=== PATIENT | female | born 1960 | race Caucasian/White ===

== ENCOUNTER → 2017-07-21 | Outpatient (CLI) | payer BC ==
--- NOTE | 2017-07-21 14:11 | XR ---
EXAMINATION TYPE: XR chest 2V DATE OF EXAM: 07/21/2017 COMPARISON: NONE HISTORY: Cough TECHNIQUE: Frontal and lateral views of the chest are obtained. FINDINGS: There is no focal air space opacity, pleural effusion, or pneumothorax seen. The cardiac silhouette size is within normal limits. The osseous structures are intact. IMPRESSION: No acute cardiopulmonary process.
== END | disposition home or self-care (01) ==
LOC: RADXRMAIN 10:17
PROVIDERS: ATTEND Family Medicine
DX: R05 Cough (principal)
CPT/HCPCS: 71020

== ENCOUNTER → 2017-09-13 | Outpatient (CLI) | payer BC ==
--- NOTE | 2017-09-15 06:52 | MM ---
Reason for exam: screening (asymptomatic). Last mammogram was performed 1 year and 6 months ago. History: Patient is postmenopausal and has history of other cancer at age 51. Physical Findings: A clinical breast exam by your physician is recommended on an annual basis and results should be correlated with mammographic findings. MG Screening Mammo w CAD Bilateral CC and MLO view(s) were taken. Prior study comparison: March 04, 2016, bilateral MG 3d screening mammo w/cad. December 19, 2014, bilateral MG screening mammo w CAD. October 11, 2013, bilateral digital screening mammo w/CAD. The breast tissue is heterogeneously dense. This may lower the sensitivity of mammography. No suspicious abnormality. No significant changes when compared with prior studies. ASSESSMENT: Negative, BI-RAD 1 RECOMMENDATION: Routine screening mammogram of both breasts in 1 year.
== END | disposition home or self-care (01) ==
LOC: RADMAMWWP 12:55
PROVIDERS: ATTEND Family Medicine
DX: Z12.31 Encounter for screening mammogram for malignant neoplasm of breast (principal)
CPT/HCPCS: 77067

== ENCOUNTER → 2018-12-07 | Outpatient (CLI) | payer BC ==
--- NOTE | 2018-12-08 11:26 | MM ---
Reason for exam: screening (asymptomatic). Last mammogram was performed 1 year and 3 months ago. History: Patient is postmenopausal and has history of other cancer at age 51. Physical Findings: A clinical breast exam by your physician is recommended on an annual basis and results should be correlated with mammographic findings. MG 3D Screening Mammo W/Cad Bilateral CC and MLO view(s) were taken. Prior study comparison: September 13, 2017, bilateral MG screening mammo w CAD. March 04, 2016, bilateral MG 3d screening mammo w/cad. There are scattered fibroglandular densities. No significant changes when compared with prior studies. ASSESSMENT: Benign, BI-RAD 2 RECOMMENDATION: Routine screening mammogram of both breasts in 1 year.
== END | disposition home or self-care (01) ==
LOC: RADMAMWWP 07:53
PROVIDERS: ATTEND Family Medicine
DX: Z12.31 Encounter for screening mammogram for malignant neoplasm of breast (principal)
CPT/HCPCS: 77063; 77067

== ENCOUNTER 2019-05-01 11:38 | Emergency (ER) | payer BC ==
[2019-05-01 11:45] VITALS: TEMP 97.9
[2019-05-01] MEDS ORDERED: SODIUM CHLORIDE 0.9% 500 ML 500 ML IV STA (12:32)
--- NOTE | 2019-05-01 12:40 | ED ---
General Adult HPI - General Chief complaint: Recheck/Abnormal Lab/Rx Stated complaint: elevated BP Time Seen by Provider: 05/01/19 12:00 Source: patient, RN notes reviewed Mode of arrival: ambulatory Limitations: no limitations - History of Present Illness Initial comments: 58-year-old female without any significant past medical history presents to the emergency department for multiple complaints. Patient states she initially presented for hypertension. States she checked her blood pressure at home and it was 147/98. Patient states that this is high for her. Patient also states that yesterday she started to have some chest pressure that lasted throughout the night but improved this morning. States she has some shortness of breath as well that was worse last night. Patient admits she recently drove home from [place] 2 days ago. Patient also complaining that while she was in [place] she had a biopsy of a mole on her left forearm and that she believes it is infected. States it is red around the area. Denies fever or chills.Patient has no other complaints at this time including shortness of breath, chest pain, abdominal pain, nausea or vomiting, headache, or visual changes. - Related Data Home Medications Medication Instructions Recorded Confirmed Lansoprazole [Prevacid] 30 mg PO DAILY 12/25/14 12/26/14 Previous Rx's Medication Instructions Recorded Cephalexin [Keflex] 500 mg PO Q6HR 10 Days #40 cap 05/01/19 Allergies Allergy/AdvReac Type Severity Reaction Status Date / Time codeine Allergy Unknown Verified 05/01/19 11:45 lactose Allergy Unknown Verified 05/01/19 11:45 levofloxacin [From Levaquin] Allergy Unknown Verified 05/01/19 11:45 sulfamethoxazole Allergy Rash/Hives Verified 05/01/19 11:45 [From Bactrim] trimethoprim [From Bactrim] Allergy Rash/Hives Verified 05/01/19 11:45 Review of Systems ROS Statement: Those systems with pertinent positive or pertinent negative responses have been documented in the HPI. ROS Other: All systems not noted in ROS Statement are negative. Past Medical History Past Medical History: Hypertension History of Any Multi-Drug Resistant Organisms: None Reported Past Surgical History: Hysterectomy Past Psychological History: No Psychological Hx Reported Smoking Status: Never smoker Past Alcohol Use History: None Reported Past Drug Use History: None Reported General Exam Limitations: no limitations General appearance: alert, in no apparent distress Head exam: Present: atraumatic, normocephalic, normal inspection Eye exam: Present: normal appearance, PERRL, EOMI. Absent: scleral icterus, conjunctival injection, periorbital swelling ENT exam: Present: normal exam, mucous membranes moist Neck exam: Present: normal inspection, full ROM. Absent: tenderness, meningismus, lymphadenopathy Respiratory exam: Present: normal lung sounds bilaterally. Absent: respiratory distress, wheezes, rales, rhonchi, stridor Cardiovascular Exam: Present: regular rate, normal rhythm, normal heart sounds. Absent: systolic murmur, diastolic murmur, rubs, gallop, clicks Neurological exam: Present: alert Psychiatric exam: Present: normal affect, normal mood Course Vital Signs 05/01/19 05/01/19 05/01/19 11:42 12:23 12:30 Temperature 97.9 F Pulse Rate 77 66 65 Respiratory 18 21 18 Rate Blood Pressure 134/85 122/75 O2 Sat by Pulse 98 96 Oximetry 05/01/19 05/01/19 05/01/19 12:40 13:04 13:10 Temperature Pulse Rate 62 87 60 Respiratory 16 18 16 Rate Blood Pressure 124/87 129/82 126/82 O2 Sat by Pulse 96 99 97 Oximetry 05/01/19 05/01/19 13:40 14:12 Temperature Pulse Rate 63 70 Respiratory 16 18 Rate Blood Pressure 126/92 115/81 O2 Sat by Pulse 97 98 Oximetry - Reevaluation(s) Reevaluation #1: 05/01/19 12:40 Blood pressure was repeated on my initial evaluation and was 124/74. EKG Findings - EKG Comments: EKG Findings:: Normal sinus rhythm, ventricular rate 74, Pr int 168, QTC 404 Medical Decision Making - Medical Decision Making 50-year-old female presents to the emergency department for multiple complaints. Patient states she is here because her blood pressure was high and was 148/98 at home. Patient also admits to chest pressure and some mild shortness of breath. Did travel from [place] yesterday. Vitals are stable. Exam is unrem arkable. EKG does not show any evidence of ST elevation or depression. CBC and CMP are unremarkable. Troponin is negative. D-dimer is negative. Patient states pressure in her chest has resolved as well as the shortness of breath. Recommended admission for further workup by cardiology however patient prefers to go home. She does agree to follow up outpatient. at bedside agrees with this as well. Patient also has some mild starting erythema around a biopsy site on the left forearm. Possible early developing cellulitis. Will be treated with Keflex and she will follow up with primary care to further monitor this as well. - Lab Data Result diagrams: 05/01/19 12:16 05/01/19 12:16 Lab Results 05/01/19 05/01/19 05/01/19 Range/Units 12:16 12:16 12:16 WBC 6.7 (3.8-10.6) k/uL RBC 4.57 (3.80-5.40) m/uL Hgb 14.6 (11.4-16.0) gm/dL Hct 42.7 (34.0-46.0) % MCV 93.4 (80.0-100.0) fL MCH 31.9 (25.0-35.0) pg MCHC 34.2 (31.0-37.0) g/dL RDW 14.7 (11.5-15.5) % Plt Count 262 (150-450) k/uL Neutrophils % 66 % Lymphocytes % 26 % Monocytes % 4 % Eosinophils % 2 % Basophils % 1 % Neutrophils # 4.4 (1.3-7.7) k/uL Lymphocytes # 1.8 (1.0-4.8) k/uL Monocytes # 0.3 (0-1.0) k/uL Eosinophils # 0.2 (0-0.7) k/uL Basophils # 0.1 (0-0.2) k/uL PT 10.0 (9.0-12.0) sec INR 0.9 (<1.2) APTT 23.3 (22.0-30.0) sec D-Dimer 0.33 (<0.60) mg/L FEU Sodium 140 (137-145) mmol/L Potassium 4.5 (3.5-5.1) mmol/L Chloride 107 (98-107) mmol/L Carbon Dioxide 24 (22-30) mmol/L Anion Gap 9 mmol/L BUN 14 (7-17) mg/dL Creatinine 0.65 (0.52-1.04) mg/dL Est GFR (CKD-EPI)AfAm >90 (>60 ml/min/1.73 sqM) Est GFR (CKD-EPI)NonAf >90 (>60 ml/min/1.73 sqM) Glucose 94 (74-99) mg/dL Calcium 9.5 (8.4-10.2) mg/dL Magnesium 2.1 (1.6-2.3) mg/dL Total Bilirubin 0.4 (0.2-1.3) mg/dL AST 24 (14-36) U/L ALT 23 (9-52) U/L Alkaline Phosphatase 67 (38-126) U/L Troponin I (0.000-0.034) ng/mL NT-Pro-B Natriuret Pep pg/mL Total Protein 6.9 (6.3-8.2) g/dL Albumin 4.3 (3.5-5.0) g/dL 05/01/19 05/01/19 Range/Units 12:16 12:16 WBC (3.8-10.6) k/uL RBC (3.80-5.40) m/uL Hgb (11.4-16.0) gm/dL Hct (34.0-46.0) % MCV (80.0-100.0) fL MCH (25.0-35.0) pg MCHC (31.0-37.0) g/dL RDW (11.5-15.5) % Plt Count (150-450) k/uL Neutrophils % % Lymphocytes % % Monocytes % % Eosinophils % % Basophils % % Neutrophils # (1.3-7.7) k/uL Lymphocytes # (1.0-4.8) k/uL Monocytes # (0-1.0) k/uL Eosinophils # (0-0.7) k/uL Basophils # (0-0.2) k/uL PT (9.0-12.0) sec INR (<1.2) APTT (22.0-30.0) sec D-Dimer (<0.60) mg/L FEU Sodium (137-145) mmol/L Potassium (3.5-5.1) mmol/L Chloride (98-107) mmol/L Carbon Dioxide (22-30) mmol/L Anion Gap mmol/L BUN (7-17) mg/dL Creatinine (0.52-1.04) mg/dL Est GFR (CKD-EPI)AfAm (>60 ml/min/1.73 sqM) Est GFR (CKD-EPI)NonAf (>60 ml/min/1.73 sqM) Glucose (74-99) mg/dL Calcium (8.4-10.2) mg/dL Magnesium (1.6-2.3) mg/dL Total Bilirubin (0.2-1.3) mg/dL AST (14-36) U/L ALT (9-52) U/L Alkaline Phosphatase (38-126) U/L Troponin I <0.012 (0.000-0.034) ng/mL NT-Pro-B Natriuret Pep 98 pg/mL Total Protein (6.3-8.2) g/dL Albumin (3.5-5.0) g/dL Disposition Clinical Impression: History of chest pain Disposition: HOME SELF-CARE Condition: Good Instructions (If sedation given, give patient instructions): Chest Pain (ED) Additional Instructions: Please follow up with primary care in 1-2 days. Take antibiotic as directed, this was sent to [facility] on . Return to the emergency department if you have any worsening symptoms. Prescriptions: Cephalexin [Keflex] 500 mg PO Q6HR 10 Days #40 cap Is patient prescribed a controlled substance at d/c from ED?: No Referrals: Mike Ramirez MD [Primary Care Provider] - 1-2 days Time of Disposition: 14:28
[2019-05-01 12:55] LABS: ALT 23 U/L (9-52); AST 24 U/L (14-36); African American GFR (CKD) >90 (>60 ml/min/1.73 sqM); Albumin 4.3 g/dL (3.5-5.0); Alkaline Phosphatase 67 U/L (38-126); Anion Gap 9 mmol/L; Blood Urea Nitrogen 14 mg/dL (7-17); Calcium 9.5 mg/dL (8.4-10.2); Carbon Dioxide 24 mmol/L (22-30); Chloride 107 mmol/L (98-107); Glucose 94 mg/dL (74-99); Magnesium 2.1 mg/dL (1.6-2.3); Potassium 4.5 mmol/L (3.5-5.1); Sodium 140 mmol/L (137-145); Total Bilirubin 0.4 mg/dL (0.2-1.3); Total Protein 6.9 g/dL (6.3-8.2)
[2019-05-01 12:58] LABS: Basophils # (A) 0.1 k/uL (0-0.2); Basophils % (A) 1 %; Eosinophils # (A) 0.2 k/uL (0-0.7); Eosinophils % (A) 2 %; HCT 42.7 % (34.0-46.0); HGB 14.6 gm/dL (11.4-16.0); Lymphocytes # (A) 1.8 k/uL (1.0-4.8); Lymphocytes % (A) 26 %; MCH 31.9 pg (25.0-35.0); MCHC 34.2 g/dL (31.0-37.0); MCV 93.4 fL (80.0-100.0); Mean Platelet Volume 7.1; Monocytes # (A) 0.3 k/uL (0-1.0); Monocytes % (A) 4 %; Neutrophils # (A) 4.4 k/uL (1.3-7.7); Neutrophils % (A) 66 %; Platelet Count 262 k/uL (150-450); RBC 4.57 m/uL (3.80-5.40); RDW 14.7 % (11.5-15.5); WBC 6.7 k/uL (3.8-10.6)
[2019-05-01 12:59] LABS: D-Dimer 0.33 mg/L FEU (<0.60); INR 0.9 (<1.2); Partial Thromboplastin Time 23.3 sec (22.0-30.0)
--- NOTE | 2019-05-01 13:10 | XR ---
EXAMINATION TYPE: XR chest 2V DATE OF EXAM: 05/01/2019 COMPARISON: NONE HISTORY: Hypertension and headache TECHNIQUE: Frontal and lateral views of the chest are obtained. FINDINGS: There is no focal air space opacity, pleural effusion, or pneumothorax seen. The cardiac silhouette size is within normal limits. The osseous structures are intact. Minimal degenerative ch anges of the spine. IMPRESSION: No acute cardiopulmonary process.
[2019-05-01 14:13] VITALS: BP 115/81; PULSE 70; RESP 18
== END 2019-05-01 14:43 | disposition home or self-care (01) ==
LOC: EC 11:38
DX: R07.89 Other chest pain (principal); L53.9 Erythematous condition, unspecified; I10 Essential (primary) hypertension; Z79.899 Other long term (current) drug therapy; Z88.5 Allergy status to narcotic agent; Z91.011 Allergy to milk products; Z88.1 Allergy status to other antibiotic agents; Z88.2 Allergy status to sulfonamides
CPT/HCPCS: 36415; 71046; 80053; 83735; 83880; 84484; 85025; 85379; 85610; 85730; 93005; 96360; 99284

== ENCOUNTER → 2019-06-21 | Outpatient (CLI) | payer BC ==
--- NOTE | 2019-06-21 11:39 | P.STRESS ---
- Stress Test Note Stress Test Results/Findings: Exam Performed: NM stress cardiolite complete Exam Date: 06/21/19 Reason for Exam: Chest Pain Height: 5 ft 5 in Weight: 64.41 kg Protocol: Kwadwo Stage: 4 Duration of Exercise: 10:00 Resting Heart Rate: 65 Resting Blood Pressure: 123/75 Maximum Achieved Heart Rate: 146 Maximum Achieved Blood Pressure: 159/79 85% PMHR: 138 100% PMHR: 162 METS: 11.3 Technologist Comment: Stress Test Results/Findings: This is a 58-year-old female with history of hypertension and COPD being evaluated for symptoms of chest pain and shortness of breath and palpitations. Stress data: Baseline EKG showed sinus rhythm with normal NV interval, QRS duration. Blood pressure at rest is 123/75 with pulse rate of 65. Patient walked on the Kwadwo protocol for 10 minutes achieving a maximum rate of 146 with a blood pressure 159/79. EKGs taken during and after x-ray did not reveal any significant changes from the baseline. Patient did not experience any chest pain. Final impression: #1. Negative stress test #2. Patient did not express any chest pain #3. No arrhythmias are detected #4. Report on the nuclear images to be given by the radiologist
--- NOTE | 2019-06-21 14:24 | NM ---
EXAMINATION TYPE: NM stress cardiolite complete DATE OF EXAM: 06/21/2019 COMPARISON: NONE HISTORY: Chest pain TECHNIQUE: After the intravenous administration of 9.91 mCi Tc 99m Sestamibi - Rest images obtained 45 minutes post injection. The patient exercised using a SHELLY protocol and 1 minute prior to peak exercise was injected with 25.4 mCi Tc 99m Sestamibi - Stress images obtained 20 minutes post injecti on. FINDINGS: Targeted heart rate was achieved during performance of the study. Review of stress and rest SPECT gustavo ges demonstrates no distinct perfusion abnormality. Gated analysis shows normal wall motion with an estimated left ventricular ejection fraction of 26 %. IMPRESSION: No scintigraphic evidence for reversible ischemia. Correlate with echocardiographic study for elevate d ejection fraction.
--- NOTE | 2019-06-23 12:01 | EST ---
- Stress Test Note Stress Test Results/Findings: Exam Performed: NM stress cardiolite complete Exam Date: 06/21/19 Reason for Exam: Chest Pain Height: 5 ft 5 in Weight: 64.41 kg Protocol: Kwadwo Stage: 4 Duration of Exercise: 10:00 Resting Heart Rate: 65 Resting Blood Pressure: 123/75 Maximum Achieved Heart Rate: 146 Maximum Achieved Blood Pressure: 159/79 85% PMHR: 138 100% PMHR: 162 METS: 11.3 Technologist Comment: Stress Test Results/Findings: This is a 58-year-old female with history of hypertension and COPD being evaluated for symptoms of chest pain and shortness of breath and palpitations. Stress data: Baseline EKG showed sinus rhythm with normal CT interval, QRS duration. Blood pressure at rest is 123/75 with pulse rate of 65. Patient walked on the Kwadwo protocol for 10 minutes achieving a maximum rate of 146 with a blood pressure 159/79. EKGs taken during and after x-ray did not reveal any significant changes from the baseline. Patient did not experience any chest pain. Final impression: #1. Negative stress test #2. Patient did not express any chest pain #3. No arrhythmias are detected #4. Report on the nuclear images to be given by the radiologist DOMONIQUE
== END | disposition home or self-care (01) ==
LOC: RADNMMAIN 07:46
PROVIDERS: ATTEND Family Medicine
DX: R07.9 Chest pain, unspecified (principal)
CPT/HCPCS: 93017; 78452; A9500

== ENCOUNTER → 2019-07-03 | Outpatient (CLI) | payer BC ==
[2019-07-03 18:18] LABS: Chol/HDL Ratio 3.61; LDL Cholesterol,Calculated 136.8 mg/dL (0.0-131.0); VLDL Calculation 17.2 mg/dL (5.00-40.00)
== END | disposition home or self-care (01) ==
LOC: LABWHC1 10:32
PROVIDERS: ATTEND Internal Medicine Clinical Cardiac Electrophysiology
DX: I10 Essential (primary) hypertension (principal); E78.5 Hyperlipidemia, unspecified
CPT/HCPCS: 36415; 80061

== ENCOUNTER → 2020-04-08 | Outpatient (CLI) | payer BC ==
--- NOTE | 2020-04-09 08:32 | MM ---
Reason for exam: screening (asymptomatic). Last mammogram was performed 1 year and 4 months ago. History: Patient is postmenopausal and has history of other cancer at age 51. Took hormonal contraceptives for 3 months. Physical Findings: A clinical breast exam by your physician is recommended on an annual basis and results should be correlated with mammographic findings. MG 3D Screening Mammo W/Cad Bilateral CC and MLO view(s) were taken. Prior study comparison: December 07, 2018, bilateral MG 3d screening mammo w/cad. September 13, 2017, bilateral MG screening mammo w CAD. There are scattered fibroglandular densities. Benign appearing bilateral calcifications. There is chronic nodularity in the right breast, stable. ASSESSMENT: Benign, BI-RAD 2 RECOMMENDATION: Routine screening mammogram of both breasts in 1 year.
== END | disposition home or self-care (01) ==
LOC: RADMAMWWP 12:49
PROVIDERS: ATTEND Family Medicine
DX: Z12.31 Encounter for screening mammogram for malignant neoplasm of breast (principal)
CPT/HCPCS: 77063; 77067

== ENCOUNTER 2020-06-14 16:32 | Observation (INO) | payer BC ==
[2020-06-14] MEDS ORDERED: ASPIRIN 81 MG PO STA (16:43)
[2020-06-14 17:31] LABS: Basophils % (A) 0 %; Eosinophils # (A) 0.2 k/uL (0-0.7); Eosinophils % (A) 2 %; HCT 43.4 % (34.0-46.0); HGB 14.3 gm/dL (11.4-16.0); Lymphocytes # (A) 2.1 k/uL (1.0-4.8); Lymphocytes % (A) 22 %; MCH 32.4 pg (25.0-35.0); MCHC 32.9 g/dL (31.0-37.0); MCV 98.6 fL (80.0-100.0); Mean Platelet Volume 6.8; Monocytes # (A) 0.4 k/uL (0-1.0); Monocytes % (A) 4 %; Neutrophils # (A) 6.9 k/uL (1.3-7.7); Neutrophils % (A) 71 %; Platelet Count 312 k/uL (150-450); RDW 12.5 % (11.5-15.5); WBC 9.7 k/uL (3.8-10.6)
[2020-06-14 17:36] LABS: INR 0.9 (<1.2); Partial Thromboplastin Time 22.7 sec (22.0-30.0); Prothrombin Time 9.6 sec (9.0-12.0)
--- NOTE | 2020-06-14 17:36 | XR ---
EXAMINATION TYPE: XR chest 2V DATE OF EXAM: 06/14/2020 COMPARISON: May 01, 2019 HISTORY: Chest pain TECHNIQUE: FINDINGS: Heart and mediastinum are normal. Lungs are clear of infiltrate. There is no heart failure. There are no hilar masses. Bony thorax is intact. IMPRESSION: No active cardiopulmonary disease. Normal heart. No change.
[2020-06-14 18:01] LABS: ALT 21 U/L (4-34); AST 26 U/L (14-36); African American GFR (CKD) >90 (>60 ml/min/1.73 sqM); Alkaline Phosphatase 84 U/L (38-126); Anion Gap 10 mmol/L; Blood Urea Nitrogen 18 mg/dL (7-17); Calcium 10.2 mg/dL (8.4-10.2); Carbon Dioxide 23 mmol/L (22-30); Chloride 103 mmol/L (98-107); Glucose 100 mg/dL (74-99); Non-African American GFR(CKD) 90 (>60 ml/min/1.73 sqM); Potassium 4.5 mmol/L (3.5-5.1); Sodium 136 mmol/L (137-145); Total Bilirubin 0.6 mg/dL (0.2-1.3); Total Protein 7.9 g/dL (6.3-8.2)
--- NOTE | 2020-06-14 18:20 | ED ---
General Adult HPI - General Source: patient Mode of arrival: ambulatory Limitations: no limitations <Jordan Vaughan - Last Filed: 06/14/20 18:56> <Erma Wharton - Last Filed: 06/16/20 15:37> - General Chief complaint: Recheck/Abnormal Lab/Rx Stated complaint: HIGH BP Time Seen by Provider: 06/14/20 16:43 - History of Present Illness Initial comments: Patient is a 59-year-old male presenting to the emergency department with chief complaint of high blood pressure. Patient states she has been feeling "queasy" for the past week with high and low blood pressures. Patient reports today her blood pressure was 169/111 so she took an additional dose of lisinopril. Patient reports she developed some pain along both sides of her neck and the left arm. Denies any chest pain or shortness of breath. She reports feeling lightheaded like she is about to pass out with intermittent dizziness where the room is spinning around her. She denies any diaphoretic episodes nausea vomiting or diarrhea. Denies any headaches, visual changes one-sided weakness paresthesias at this time. States that she was diagnosed with hypertension last year and has been on lisinopril since. Does report hypocholesteremia but is not currently treated for it. She's not a smoker. No history of diabetes. Denies early cardiac related in the family. (Jordan Vaughan) - Related Data Home Medications Medication Instructions Recorded Confirmed Cholecalciferol [Vitamin D3 (25 5,000 unit PO DAILY 06/14/20 06/14/20 Mcg = 1000 Iu)] Cyanocobalamin (Vitamin B-12) 5,000 mcg SL DAILY 06/14/20 06/14/20 [Vitamin B-12] Previous Rx's Medication Instructions Recorded Lisinopril [Prinivil] 5 mg PO BID #0 06/15/20 Allergies Allergy/AdvReac Type Severity Reaction Status Date / Time codeine Allergy Rash/Hives Verified 06/14/20 18:54 lactose Allergy Unknown Verified 06/14/20 18:54 levofloxacin [From Levaquin] Allergy anxiety Verified 06/14/20 18:54 sulfamethoxazole Allergy Rash/Hives Verified 06/14/20 18:54 [From Bactrim] trimethoprim [From Bactrim] Allergy Rash/Hives Verified 06/14/20 18:54 Review of Systems ROS Other: All systems not noted in ROS Statement are negative. <Jordan Vaughan - Last Filed: 06/14/20 18:56> ROS Other: All systems not noted in ROS Statement are negative. <Erma Wharton - Last Filed: 06/16/20 15:37> ROS Statement: Those systems with pertinent positive or pertinent negative responses have been documented in the HPI. Past Medical History Past Medical History: Hypertension History of Any Multi-Drug Resistant Organisms: None Reported Past Surgical History: Hysterectomy Past Psychological History: No Psychological Hx Reported Smoking Status: Never smoker Past Alcohol Use History: None Reported Past Drug Use History: None Reported <Jordan Vaughan - Last Filed: 06/14/20 18:56> General Exam Limitations: no limitations General appearance: alert, in no apparent distress Head exam: Present: atraumatic, normocephalic, normal inspection Eye exam: Present: normal appearance, PERRL, EOMI Pupils: Present: normal accommodation ENT exam: Present: normal exam, normal oropharynx, mucous membranes moist Neck exam: Present: normal inspection, full ROM. Absent: tenderness Respiratory exam: Present: normal lung sounds bilaterally. Absent: respiratory distress, wheezes, rales Cardiovascular Exam: Present: regular rate, normal rhythm, normal heart sounds GI/Abdominal exam: Present: soft. Absent: distended, tenderness, guarding, rebo und Extremities exam: Present: normal inspection, full ROM, normal capillary refill, other (+2 ulnar and radial pulses bilateral.). Absent: tenderness, pedal edema, joint swelling, calf tenderness Back exam: Present: normal inspection, full ROM. Absent: tenderness, CVA tenderness (R), CVA tenderness (L) Neurological exam: Present: alert, oriented X3 Psychiatric exam: Present: normal affect, normal mood Skin exam: Present: warm, dry, intact, normal color <Jordan Vaughan - Last Filed: 06/14/20 18:56> Course Vital Signs 06/14/20 06/14/20 06/14/20 16:36 17:34 18:00 Temperature 98.9 F Pulse Rate 77 76 76 Pulse Rate [ Pulse Oximetery ] Respiratory 18 18 Rate Blood Pressure 131/90 146/93 Blood Pressure [Right Arm] O2 Sat by Pulse 100 98 Oximetry 10/16/20 10/16/20 10/16/20 18:30 19:56 20:19 Temperature 97.7 F 97.3 F L Pulse Rate 71 76 Pulse Rate [ 71 Pulse Oximetery ] Respiratory 16 18 18 Rate Blood Pressure 125/83 136/78 Blood Pressure 148/92 [Right Arm] O2 Sat by Pulse 98 99 98 Oximetry EKG Findings - EKG Comments: EKG Findings:: Sinus rhythm with PAC. Ventricular rate 73, HI 154, QRS 78, QTC 416. <Jordan Vaughan - Last Filed: 06/14/20 18:56> Medical Decision Making - Lab Data Result diagrams: 06/14/20 17:03 06/14/20 17:03 <Jordan Vaughan - Last Filed: 06/14/20 18:56> - Lab Data Result diagrams: 06/14/20 17:03 06/14/20 17:03 <Erma Wharton - Last Filed: 06/16/20 15:37> - Medical Decision Making Patient is 59-year-old female presenting to the emergency department with a chief complaint of high blood pressure. On initial evaluation, patient has acceptable blood pressure. She is complaining of bilateral neck pressure as well as heaviness in the left arm. No significant dyspnea or chest pain at this time. She is feeling lightheaded. Patient was given aspirin. EKG revealed sinus rhythm with sinus arrhythmia. Most recent stress test from 2019 was within normal limits. Initial troponins were negative. CBC and CMP are unremarkable. Chest x-ray is negative for any acute processes. Patient will be admitted for cardiac observation and serial troponins. Patient has a heart score 4. Case discussed with Admitting physician is Cardiology consulted (Jordan Vaughan) I was available for consultation in the emergency department. The history and physical exam were done by the midlevel provider. [facility] I reviewed the case with the midlevel provider and based on their presentation of the patient, I agree with the assessment, medical decision making and plan of care as documented. Chart was dictated using [employer] dictation software. Attempts were made to correct any dictation errors however some typographical errors may persist. (Erma Wharton) - Lab Data Lab Results 06/14/20 06/14/20 06/14/20 Range/Units 17:03 17:03 17:03 WBC 9.7 (3.8-10.6) k/uL RBC 4.40 (3.80-5.40) m/uL Hgb 14.3 (11.4-16.0) gm/dL Hct 43.4 (34.0-46.0) % MCV 98.6 (80.0-100.0) fL MCH 32.4 (25.0-35.0) pg MCHC 32.9 (31.0-37.0) g/dL RDW 12.5 (11.5-15.5) % Plt Count 312 (150-450) k/uL Neutrophils % 71 % Lymphocytes % 22 % Monocytes % 4 % Eosinophils % 2 % Basophils % 0 % Neutrophils # 6.9 (1.3-7.7) k/uL Lymphocytes # 2.1 (1.0-4.8) k/uL Monocytes # 0.4 (0-1.0) k/uL Eosinophils # 0.2 (0-0.7) k/uL Basophils # 0.0 (0-0.2) k/uL PT 9.6 (9.0-12.0) sec INR 0.9 (<1.2) APTT 22.7 (22.0-30.0) sec Sodium 136 L (137-145) mmol/L Potassium 4.5 (3.5-5.1) mmol/L Chloride 103 (98-107) mmol/L Carbon Dioxide 23 (22-30) mmol/L Anion Gap 10 mmol/L BUN 18 H (7-17) mg/dL Creatinine 0.74 (0.52-1.04) mg/dL Est GFR (CKD-EPI)AfAm >90 (>60 ml/min/1.73 sqM) Est GFR (CKD-EPI)NonAf 90 (>60 ml/min/1.73 sqM) Glucose 100 H (74-99) mg/dL Calcium 10.2 (8.4-10.2) mg/dL Magnesium 2.0 (1.6-2.3) mg/dL Total Bilirubin 0.6 (0.2-1.3) mg/dL AST 26 (14-36) U/L ALT 21 (4-34) U/L Alkaline Phosphatase 84 (38-126) U/L Troponin I (0.000-0.034) ng/mL Total Protein 7.9 (6.3-8.2) g/dL Albumin 5.0 (3.5-5.0) g/dL 06/14/20 Range/Units 17:03 WBC (3.8-10.6) k/uL RBC (3.80-5.40) m/uL Hgb (11.4-16.0) gm/dL Hct (34.0-46.0) % MCV (80.0-100.0) fL MCH (25.0-35.0) pg MCHC (31.0-37.0) g/dL RDW (11.5-15.5) % Plt Count (150-450) k/uL Neutrophils % % Lymphocytes % % Monocytes % % Eosinophils % % Basophils % % Neutrophils # (1.3-7.7) k/uL Lymphocytes # (1.0-4.8) k/uL Monocytes # (0-1.0) k/uL Eosinophils # (0-0.7) k/uL Basophils # (0-0.2) k/uL PT (9.0-12.0) sec INR (<1.2) APTT (22.0-30.0) sec Sodium (137-145) mmol/L Potassium (3.5-5.1) mmol/L Chloride (98-107) mmol/L Carbon Dioxide (22-30) mmol/L Anion Gap mmol/L BUN (7-17) mg/dL Creatinine (0.52-1.04) mg/dL Est GFR (CKD-EPI)AfAm (>60 ml/min/1.73 sqM) Est GFR (CKD-EPI)NonAf (>60 ml/min/1.73 sqM) Glucose (74-99) mg/dL Calcium (8.4-10.2) mg/dL Magnesium (1.6-2.3) mg/dL Total Bilirubin (0.2-1.3) mg/dL AST (14-36) U/L ALT (4-34) U/L Alkaline Phosphatase (38-126) U/L Troponin I <0.012 (0.000-0.034) ng/mL Total Protein (6.3-8.2) g/dL Albumin (3.5-5.0) g/dL Disposition Is patient prescribed a controlled substance at d/c from ED?: No Time of Disposition: 18:59 <Jordan Vaughan - Last Filed: 06/14/20 18:56> <Erma Wharton - Last Filed: 06/16/20 15:37> Clinical Impression: Lightheadedness, Dizziness, Atypical chest pain Disposition: ADMITTED IP TO THIS HOSP Condition: Stable
[2020-06-14] MEDS ORDERED: HYDROmorphone 0.5 MG/0.5 ML SYRINGE IVP PRN (18:45)
[2020-06-14] MEDS ORDERED: LORazepam 2 MG/ML INJ IV PRN (18:45)
[2020-06-14] MEDS ORDERED: ONDANSETRON 4 MG/2 ML VIAL IVP PRN (18:45)
[2020-06-14] MEDS ORDERED: NALOXONE 0.4 MG/ML 1 ML VIAL IV PRN (18:45)
[2020-06-14] MEDS ORDERED: IBUPROFEN 400 MG TAB PO PRN (18:45)
[2020-06-14] MEDS ORDERED: ACETAMINOPHEN TAB 325 MG TAB PO PRN (18:45)
[2020-06-14] MEDS: SODIUM CHLORIDE 0.9% 1,000 ML IV SCH (19:49)
[2020-06-15] MEDS ORDERED: CHOLECALCIFEROL 1,000 UNIT TAB PO SCH (09:00)
[2020-06-15] MEDS ORDERED: lisinopriL 10 MG TAB PO SCH (09:00)
[2020-06-15] MEDS ORDERED: CYANOCOBALAMIN 500 MCG TAB PO SCH (09:00)
[2020-06-15] MEDS: SODIUM CHLORIDE 0.9% 1,000 ML IV SCH (11:18)
--- NOTE | 2020-06-15 12:19 | P.CRDCN ---
History of Present Illness History of present illness: came in for htn and left shoulder/jaw tightness at home. pressure in the head. also discomfort in the upper abdomen. has been having jaw pain off and on for 1 week. HISTORY OF PRESENTING ILLNESS This is a pleasant 59-year-old female past medical history significant for hypertension and lactose intolerance causing significant abdominal symptoms. She follows in the office with Dr. Whipple. We have been asked to see in consultation for dizziness. The patient states she's been checking her blood pressure frequently and it seems to be elevated. It's been causing her symptoms of headache and feeling lightheaded. She also describes having intermittent episodes of jaw discomfort off-and-on for the previous one week. This is not related to exertion or activity. She denies any precordial chest pain, shortness of breath or palpitations. She states her blood pressure at home has been 130/100 and she's been taking more for lisinopril at home. On arrival to the emergency department blood pressure was 130/90. This morning is 102/65. DIAGNOSTICS EKG reveals sinus mechanism with a single PAC. Chest xray negative for an acute cardiopulmonary process. Laboratory reviewed, CBC unremarkable, sodium 136, potassium 4.5, creatinine 0.74, cardiac enzymes negative 3. Current cardiac medications include Cipro 10 mg daily. Most recent echocardiogram obtained in the office June 2019 reveals preserved LV systolic function with ejection fraction 60%, normal diastolic function and no valvular abnormalities noted. REVIEW OF SYSTEMS At the time of my exam: CONSTITUTIONAL: Denies fever or chills. CARDIOVASCULAR: Denies chest pain, shortness of breath, orthopnea, PND or palpitations. RESPIRATORY: Denies cough. GASTROINTESTINAL: Denies abdominal pain, diarrhea, constipation, nausea or vomiting. MUSCULOSKELETAL: Denies myalgias. NEUROLOGIC: Denies numbness, tingling or weakness. ENDOCRINE: Denies fatigue, weight change, polydipsia or polyurina. GENITOURINARY: Denies burning, hematuria or urgency with micturation. HEMATOLOGIC: Denies history of anemia or bleeding. PHYSICAL EXAMINATION CONSTITUTIONAL: No apparent distress. HEENT: Head is normocephalic. Pupils are equal, round. Sclerae anicteric. Mucous membranes of the mouth are moist. No JVD. No carotid bruit. CHEST EXAMINATION: Lungs are clear to auscultation. No chest wall tenderness is noted on palpation or with deep breathing. HEART EXAMINATION: Regular rate and rhythm. S1, S2 heard. No murmurs, gallops or rub. ABDOMEN: Soft, nontender. Positive bowel sounds. EXTREMITIES: 2+ peripheral pulses, no lower extremity edema and no calf tenderness. NEUROLOGIC EXAMINATION: Patient is awake, alert and oriented x3. ASSESSMENT Chest pain, atypical Hypertension PLAN Acute coronary event has been ruled out. Telemetry tracings have been unremarkable. Blood pressures have been controlled on current regimen. Repeat 2-D echocardiogram and Doppler study to assess cardiac structure and function. Advised the patient to increase activity and ambulate. Assess for exertional symptoms of chest discomfort. We recommend stress testing this can be obtained by staying in the hospital and having it done on Wednesday or being discharged to see Dr. Whipple in the office next week. The patient states she would much rather do this as an outpatient. If she is free of exertional pain this is a reasonable recommendation. Thank you chronic for this consultation. Nurse Practitioner note has been reviewed, I agree with a documented findings and plan of care. Patient was seen and examined. 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 Past Drug Use History: None Reported Medications and Allergies Home Medications Medication Instructions Recorded Confirmed Type Cholecalciferol [Vitamin D3 (25 5,000 unit PO DAILY 06/14/20 06/14/20 History Mcg = 1000 Iu)] Cyanocobalamin (Vitamin B-12) 5,000 mcg SL DAILY 06/14/20 06/14/20 History [Vitamin B-12] Lisinopril [Prinivil] 10 mg PO DAILY 06/14/20 06/14/20 History Allergies Allergy/AdvReac Type Severity Reaction Status Date / Time codeine Allergy Rash/Hives Verified 06/14/20 18:54 lactose Allergy Unknown Verified 06/14/20 18:54 levofloxacin [From Levaquin] Allergy anxiety Verified 06/14/20 18:54 sulfamethoxazole Allergy Rash/Hives Verified 06/14/20 18:54 [From Bactrim] trimethoprim [From Bactrim] Allergy Rash/Hives Verified 06/14/20 18:54 Physical Exam Vitals: Vital Signs Temp Pulse Pulse Resp BP BP Pulse Ox 06/15/20 09:00 72 16 06/15/20 08:10 98.1 F 72 16 118/78 97 06/15/20 03:50 97.8 F 69 18 102/65 96 06/15/20 03:00 69 18 06/14/20 21:00 97.7 F 71 18 148/92 99 06/14/20 20:19 97.3 F L 76 18 136/78 98 06/14/20 19:56 97.7 F 71 18 148/92 99 06/14/20 18:30 71 16 125/83 98 06/14/20 18:00 76 18 146/93 98 06/14/20 17:34 76 06/14/20 16:36 98.9 F 77 18 131/90 100 Intake and Output 06/14/20 06/15/20 06/15/20 22:59 06:59 14:59 Other: Voiding Method Toilet Toilet Toilet # Voids 1 2 2 Weight 68.039 kg Results 06/14/20 17:03 06/14/20 17:03 Cardiac Enzymes 06/14/20 06/14/20 06/14/20 Range/Units 17:03 17:03 20:26 AST 26 (14-36) U/L Troponin I <0.012 <0.012 (0.000-0.034) ng/mL 06/14/20 Range/Units 23:41 AST (14-36) U/L Troponin I <0.012 (0.000-0.034) ng/mL Coagulation 06/14/20 Range/Units 17:03 PT 9.6 (9.0-12.0) sec APTT 22.7 (22.0-30.0) sec CBC 06/14/20 Range/Units 17:03 WBC 9.7 (3.8-10.6) k/uL RBC 4.40 (3.80-5.40) m/uL Hgb 14.3 (11.4-16.0) gm/dL Hct 43.4 (34.0-46.0) % Plt Count 312 (150-450) k/uL Comprehensive Metabolic Panel 06/14/20 Range/Units 17:03 Sodium 136 L (137-145) mmol/L Potassium 4.5 (3.5-5.1) mmol/L Chloride 103 (98-107) mmol/L Carbon Dioxide 23 (22-30) mmol/L BUN 18 H (7-17) mg/dL Creatinine 0.74 (0.52-1.04) mg/dL Glucose 100 H (74-99) mg/dL Calcium 10.2 (8.4-10.2) mg/dL AST 26 (14-36) U/L ALT 21 (4-34) U/L Alkaline Phosphatase 84 (38-126) U/L Total Protein 7.9 (6.3-8.2) g/dL Albumin 5.0 (3.5-5.0) g/dL Current Medications Generic Name Dose Route Start Last Admin Trade Name Freq PRN Reason Stop Dose Admin Acetaminophen 650 mg 06/14/20 18:45 Acetaminophen Tab 325 Mg Tab PO Q6HR PRN Mild Pain or Fever > 100.5 Cholecalciferol 5,000 unit 06/15/20 09:00 Cholecalciferol 1,000 Unit Tab PO DAILY [facility] Cyanocobalamin 5,000 mcg 06/15/20 09:00 Cyanocobalamin 500 Mcg Tab PO DAILY JESSICA Hydromorphone HCl 0.5 mg 06/14/20 18:45 Hydromorphone 0.5 Mg/0.5 Ml Syringe IVP Q3HR PRN Moderate Pain Sodium Chloride 1,000 mls @ 75 mls/hr 06/14/20 18:45 06/14/20 19:49 Saline 0.9% IV 75 mls/hr .[id number] JESSICA Administration Ibuprofen 400 mg 06/14/20 18:45 Ibuprofen 400 Mg Tab PO Q6HR PRN Mild Pain or Fever > 100.5 Lisinopril 10 mg 06/15/20 09:00 Lisinopril 10 Mg Tab PO DAILY JESSICA Lorazepam 0.5 mg 06/14/20 18:45 Lorazepam 2 Mg/Ml Inj IV Q6HR PRN Anxiety Naloxone HCl 0.2 mg 06/14/20 18:45 Naloxone 0.4 Mg/Ml 1 Ml Vial IV Q2M PRN Opioid Reversal Ondansetron HCl 4 mg 06/14/20 18:45 Ondansetron 4 Mg/2 Ml Vial IVP Q8HR PRN Nausea And Vomiting Intake and Output 06/14/20 06/15/20 06/15/20 22:59 06:59 14:59 Other: Voiding Method Toilet Toilet Toilet # Voids 1 2 2 Weight 68.039 kg 06/14/20 17:03 06/14/20 17:03
[2020-06-15 15:30] VITALS: BP 128/84; PULSE 78; RESP 14; TEMP 98
--- NOTE | 2020-06-15 16:39 | ECHOF ---
Referral Reason:cp, htn MEASUREMENTS -------- HEIGHT: 165.1 cm WEIGHT: 68.0 kg BP: 118/78 RVIDd: 2.9 cm (< 3.3) IVSd: 1.1 cm (0.6 - 1.1) LVIDd: 3.9 cm (3.9 - 5.3) LVPWd: 1.1 cm (0.6 - 1.1) IVSs: 1.7 cm LVIDs: 2.2 cm LVPWs: 1.4 cm LA Diam: 3.0 cm (2.7 - 3.8) LAESV Index (A-L): 23.09 ml/m Ao Diam: 2.8 cm (2.0 - 3.7) AV Cusp: 2.0 cm (1.5 - 2.6) MV EXCURSION: 13.341 mm (> 18.000) MV EF SLOPE: 99 mm/s (70 - 150) EPSS: 0.3 cm MV E Dyllan: 0.85 m/s MV DecT: 268 ms MV A Dyllan: 1.11 m/s MV E/A Ratio: 0.77 FINDINGS -------- Sinus rhythm. This was a technically adequate study. The left ventricular size is normal. There is borderline concentric left ventricular hypertrophy. Overall left ventricular systolic function is normal with, an EF between 60 - 65 %. The right ventricle is normal in size. Normal LA size by volume 22+/-6 ml/m2. The right atrium is normal in size. Interatrial and interventricular septum intact. The aortic valve is trileaflet and appears structurally normal. The mitral valve is normal. The tricuspid valve appears structurally normal. Trace/mild (physiologic) pulmonic regurgitation. The aortic root size is normal. Normal inferior vena cava with normal inspiratory collapse consistent with estimated right atrial pre ssure of 5 mmHg. The inferior vena cava is mildly dilated. There is no pericardial effusion. CONCLUSIONS -------- 1. The left ventricular size is normal. 2. There is borderline concentric left ventricular hypertrophy. 3. Overall left ventricular systolic function is normal with, an EF between 60 - 65 %. 4. Trace/mild (physiologic) pulmonic regurgitation. 5. Normal inferior vena cava with normal inspiratory collapse consistent with estimated right atrial pressure of 5 mmHg. 6. The inferior vena cava is mildly dilated. 7. There is no pericardial effusion. RN MANAGED CARE: Radha Hodgson RDCS
--- NOTE | 2020-06-15 20:48 | P.HPIM ---
History of Present Illness H&P Date: 06/15/20 Chief Complaint: Increased blood pressure History of presenting complaint: This is a pleasant 59-year-old patient of Dr. Ramirez. Patient has a history of blood pressure. Normally takes interval. 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 She presented with an episode of feeling flushed just out of sorts is no fever no chills. No cough or shortness of breath or chest pain. 2, blood pressure it was 160 systolic. Decided to come in. She had a short-lived episode of pain side of the neck behind the left arm no obvious chest pain. Blood pressure recorded here was reasonable. 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 Son and [id number] lives with her. No smoking. Does drink was 3 short's of alcohol every night. Family history: Reviewed, noncontributory to presentation Physical examination: VITAL SIGNS: 98.9, 77, 18, 131/90, 100% room air GENERAL: BMI 25, sitting on edge of the bed, comfortable. EYES: Pupils equal. Conjunctiva normal. HEENT: External appearance of nose and ears normal, oral cavity grossly normal. NECK: JVD not raised; masses not palpable. HEART: First and second heart sounds are normal; no edema. LUNGS: Respiratory rate normal; clear to auscultation. ABDOMEN: Soft, nontender, liver spleen not palpable, no masses palpable. PSYCH: Alert and oriented x3; mood and affect normal. NEUROLOGICAL: Cranial nerves grossly intact; no facial asymmetry, power and se nsation grossly intact. LYMPHATICS: No lymph nodes palpable in the axilla and neck INVESTIGATIONS, reviewed in the clinical context: White count 9.7 hemoglobin 14.3 platelets 312 potassium 4.5 crit and 0.74 Troponin I 3 negative EKG tracing personally reviewed by me-sinus rhythm, PACs Chest x-ray film personally reviewed by me-lungs clear Assessment: -Possible episodic hypertension from disturbed sleep cycle, as patient works days and nights. -Essential hypertension -Rule out cardiac cause Plan: Patient put on telemetry. Cardiology consulted. 2-D echocardiogram was ordered. Care was discussed with the patient. 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 Past Drug Use History: None Reported Medications and Allergies Home Medications Medication Instructions Recorded Confirmed Type Cholecalciferol [Vitamin D3 (25 5,000 unit PO DAILY 06/14/20 06/14/20 History Mcg = 1000 Iu)] Cyanocobalamin (Vitamin B-12) 5,000 mcg SL DAILY 06/14/20 06/14/20 History [Vitamin B-12] Lisinopril [Prinivil] 5 mg PO BID #0 06/15/20 06/14/20 Rx Allergies Allergy/AdvReac Type Severity Reaction Status Date / Time codeine Allergy Rash/Hives Verified 06/14/20 18:54 lactose Allergy Unknown Verified 06/14/20 18:54 levofloxacin [From Levaquin] Allergy anxiety Verified 06/14/20 18:54 sulfamethoxazole Allergy Rash/Hives Verified 06/14/20 18:54 [From Bactrim] trimethoprim [From Bactrim] Allergy Rash/Hives Verified 06/14/20 18:54 Physical Exam Vitals: Vital Signs Temp Pulse Pulse Resp BP BP Pulse Ox 06/15/20 09:00 72 16 06/15/20 08:10 98.1 F 72 16 118/78 97 06/15/20 03:50 97.8 F 69 18 102/65 96 06/15/20 03:00 69 18 06/14/20 21:00 97.7 F 71 18 148/92 99 06/14/20 20:19 97.3 F L 76 18 136/78 98 06/14/20 19:56 97.7 F 71 18 148/92 99 06/14/20 18:30 71 16 125/83 98 06/14/20 18:00 76 18 146/93 98 06/14/20 17:34 76 06/14/20 16:36 98.9 F 77 18 131/90 100 Intake and Output 06/14/20 06/15/20 06/15/20 22:59 06:59 14:59 Other: Voiding Method Toilet Toilet Toilet # Voids 1 2 Weight 68.039 kg Results CBC & Chem 7: 06/14/20 17:03 06/14/20 17:03 Labs: Abnormal Lab Results - Last 24 Hours (Table) 06/14/20 Range/Units 17:03 Sodium 136 L (137-145) mmol/L BUN 18 H (7-17) mg/dL Glucose 100 H (74-99) mg/dL Thrombosis Risk Factor Assmnt - Choose All That Apply Each Factor Represents 1 point: Age 41-60 years Other Risk Factors: No Other congenital or acquired thrombophilia - If yes, enter type in comment: No Thrombosis Risk Factor Assessment Total Risk Factor Score: 1 Thrombosis Risk Factor Assessment Level: Low Risk
--- NOTE | 2020-06-15 20:51 | P.DS ---
Providers Date of admission: 06/14/20 18:58 Expected date of discharge: 06/15/20 Attending physician: Raj Pichardo Consults: 06/14/20 18:56 Consult Physician Stat Consulting Provider: Deepak Salmon Consult Reason/Comments: Cardiac rule out, lightheadedness, weakness Do you want consulting provider notified?: Yes [facility] Course: Chief Complaint: Increased blood pressure History of presenting complaint: This is a pleasant 59-year-old patient of Dr. Ramirez. Patient has a history of blood pressure. Normally takes interval. Patient does work at the [employer]. 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 She presented with an episode of feeling flushed just out of sorts is no fever no chills. No cough or shortness of breath or chest pain. 2, blood pressure it was 160 systolic. Decided to come in. She had a short-lived episode of pain side of the neck behind the left arm no obvious chest pain. Blood pressure recorded here was reasonable. Patient had several blood pressures recorded here. All within normal limits. One episodic blood pressure could be from altered sleep cycle. 2-D echo was unremarkable. Telemetry is unremarkable. Cleared by currently. Patient told to take her Prinivil twice a day. 5 mg a morning and 5 mg evening. Consultation: Dr. Plascencia from cardiology Physical examination: VITAL SIGNS: 98, 78, 14, 128/84, 96% room air GENERAL: BMI 25, sitting on edge of the bed, comfortable. EYES: Pupils equal. Conjunctiva normal. HEENT: External appearance of nose and ears normal, oral cavity grossly normal. NECK: JVD not raised; masses not palpable. HEART: First and second heart sounds are normal; no edema. LUNGS: Respiratory rate normal; clear to auscultation. ABDOMEN: Soft, nontender, liver spleen not palpable, no masses palpable. PSYCH: Alert and oriented x3; mood and affect normal. INVESTIGATIONS, reviewed in the clinical context: White count 9.7 hemoglobin 14.3 platelets 312 potassium 4.5 crit and 0.74 Troponin I 3 negative EKG tracing personally reviewed by me-sinus rhythm, PACs Chest x-ray film personally reviewed by me-lungs clear 2-D echocardiogram-EF 60-65% Assessment: -Possible episodic hypertension from disturbed sleep cycle, as patient works days and nights. -Essential hypertension -Rule out cardiac cause Disposition: Home Patient Condition at Discharge: Stable Plan - Discharge Summary Discharge Rx Participant: No New Discharge Prescriptions: Continue Cyanocobalamin (Vitamin B-12) [Vitamin B-12] 5,000 mcg SL DAILY Cholecalciferol [Vitamin D3 (25 Mcg = 1000 Iu)] 5,000 unit PO DAILY Changed Lisinopril [Prinivil] 5 mg PO BID #0 Discharge Medication List Cholecalciferol [Vitamin D3 (25 Mcg = 1000 Iu)] 5,000 unit PO DAILY 06/14/20 [History] Cyanocobalamin (Vitamin B-12) [Vitamin B-12] 5,000 mcg SL DAILY 06/14/20 [History] Lisinopril [Prinivil] 5 mg PO BID #0 06/15/20 [Rx] Follow up Appointment(s)/Referral(s): Deepak Salmon MD [STAFF PHYSICIAN] - 2 Weeks Mike Ramirez MD [Primary Care Provider] - 1-2 days
== END 2020-06-15 17:26 | disposition home or self-care (01) ==
LOC: EC 16:32 → 3NCARDOBS 18:58
PROVIDERS: ADMIT Hospitalist; ATTEND Hospitalist
DX: R07.89 Other chest pain (principal); I10 Essential (primary) hypertension; G47.8 Other sleep disorders; M54.2 Cervicalgia; M79.602 Pain in left arm; R68.84 Jaw pain; I49.1 Atrial premature depolarization; E73.9 Lactose intolerance, unspecified; Z79.899 Other long term (current) drug therapy; Z88.5 Allergy status to narcotic agent; Z88.1 Allergy status to other antibiotic agents; Z88.2 Allergy status to sulfonamides; Z90.710 Acquired absence of both cervix and uterus
CPT/HCPCS: 93005 ×2; 99284; 36415; 93306; 80053; 83735; 84484; 85025; 85610; 85730; 71046; G0378 ×2

== ENCOUNTER 2021-03-22 13:19 | Emergency (ER) | payer BC ==
[2021-03-22 14:55] LABS: Basophils % (A) 1 %; Eosinophils # (A) 0.2 k/uL (0-0.7); Eosinophils % (A) 3 %; HCT 42.6 % (34.0-46.0); HGB 14.4 gm/dL (11.4-16.0); Lymphocytes # (A) 1.8 k/uL (1.0-4.8); Lymphocytes % (A) 31 %; MCH 31.1 pg (25.0-35.0); MCHC 33.7 g/dL (31.0-37.0); MCV 92.2 fL (80.0-100.0); Mean Platelet Volume 7.3; Monocytes # (A) 0.3 k/uL (0-1.0); Monocytes % (A) 5 %; Neutrophils # (A) 3.4 k/uL (1.3-7.7); Neutrophils % (A) 58 %; Platelet Count 262 k/uL (150-450); RBC 4.63 m/uL (3.80-5.40); RDW 12.1 % (11.5-15.5); WBC 5.8 k/uL (3.8-10.6)
[2021-03-22 15:04] LABS: African American GFR (CKD) >90 (>60 ml/min/1.73 sqM); Anion Gap 8 mmol/L; Blood Urea Nitrogen 17 mg/dL (7-17); Calcium 9.9 mg/dL (8.4-10.2); Carbon Dioxide 26 mmol/L (22-30); Chloride 107 mmol/L (98-107); Glucose 90 mg/dL (74-99); Non-African American GFR(CKD) >90 (>60 ml/min/1.73 sqM); Potassium 4.5 mmol/L (3.5-5.1); Sodium 141 mmol/L (137-145)
--- NOTE | 2021-03-22 15:24 | XR ---
EXAMINATION TYPE: XR chest 2V DATE OF EXAM: 03/22/2021 COMPARISON: 06/14/2020 HISTORY: Pain Chest congestion. TECHNIQUE: 2 views FINDINGS: Heart and mediastinum are normal. There is some minimal density at the left costophrenic an gle.. Diaphragm is normal. Bony thorax is intact. IMPRESSION: There is some minimal pleural reaction or infiltrate lateral left lung base that is new c ompared to old exam..
--- NOTE | 2021-03-22 15:44 | ED ---
URI HPI - General Chief Complaint: Upper Respiratory Infection Stated Complaint: SOB Time Seen by Provider: 03/22/21 13:44 Source: patient, RN notes reviewed Mode of arrival: ambulatory Limitations: no limitations - History of Present Illness Initial Comments: Patient is a 60-year-old female that presents to the emergency department complaining of upper respiratory tract symptoms for the past 2 weeks. She notes that it did start off with a common cold with very minor fevers. She notes that has progressed into her chest. She denied any increased shortness of breath with exertion. She denied any chest pain shortness of breath headache nausea vomiting diarrhea constipation fever fatigue chills. She noted that she wanted to come in to get evaluated to make sure there was okay. - Related Data Home Medications Medication Instructions Recorded Confirmed Cholecalciferol [Vitamin D3 (25 5,000 unit PO DAILY 06/14/20 06/14/20 Mcg = 1000 Iu)] Cyanocobalamin (Vitamin B-12) 5,000 mcg SL DAILY 06/14/20 06/14/20 [Vitamin B-12] Previous Rx's Medication Instructions Recorded Lisinopril [Prinivil] 5 mg PO BID #0 06/15/20 Azithromycin [Zithromax] 500 mg PO DAILY #5 tab 03/22/21 Allergies Allergy/AdvReac Type Severity Reaction Status Date / Time codeine Allergy Rash/Hives Verified 03/22/21 13:26 lactose Allergy Unknown Verified 03/22/21 13:26 levofloxacin [From Levaquin] Allergy anxiety Verified 03/22/21 13:26 sulfamethoxazole Allergy Rash/Hives Verified 03/22/21 13:26 [From Bactrim] trimethoprim [From Bactrim] Allergy Rash/Hives Verified 03/22/21 13:26 Review of Systems ROS Statement: Those systems with pertinent positive or pertinent negative responses have been documented in the HPI. ROS Other: All systems not noted in ROS Statement are negative. Past Medical History Past Medical History: Hypertension History of Any Multi-Drug Resistant Organisms: None Reported Past Surgical History: Hysterectomy Past Anesthesia/Blood Transfusion Reactions: No Reported Reaction Past Psychological History: No Psychological Hx Reported Smoking Status: Never smoker Past Alcohol Use History: None Reported Past Drug Use History: None Reported General Exam Limitations: no limitations General appearance: alert, in no apparent distress Head exam: Present: atraumatic, normocephalic, normal inspection Eye exam: Present: normal appearance, PERRL, EOMI. Absent: scleral icterus, conjunctival injection, periorbital swelling Neck exam: Present: normal inspection. Absent: tenderness, meningismus, lymphadenopathy Respiratory exam: Present: normal lung sounds bilaterally. Absent: respiratory distress, wheezes, rales, rhonchi, stridor Cardiovascular Exam: Present: regular rate, normal rhythm, normal heart sounds. Absent: systolic murmur, diastolic murmur, rubs, gallop, clicks GI/Abdominal exam: Present: soft, normal bowel sounds. Absent: distended, tenderness, guarding, rebound, rigid Extremities exam: Present: normal inspection, full ROM, normal capillary refill. Absent: tenderness, pedal edema, joint swelling, calf tenderness Neurological exam: Present: alert, oriented X3 Psychiatric exam: Present: normal affect, normal mood Skin exam: Present: warm, dry, intact, normal color. Absent: rash Course Vital Signs 03/22/21 13:26 Temperature 97.9 F Pulse Rate 89 Respiratory 20 Rate Blood Pressure 124/78 O2 Sat by Pulse 93 L Oximetry Medical Decision Making - Medical Decision Making 60-year-old female complaining of upper respiratory tract symptoms for the past 2 weeks. Covid test, influenza test, chest x-ray, basic labs ordered. Covid test, influenza test both negative. Labs unremarkable. chest xray: minimal infiltrate in left lung base case discussed with Dr. Collado, patient can discharge home with antibiotics and follow up to primary. - Lab Data Result diagrams: 03/22/21 14:39 03/22/21 14:39 Lab Results 03/22/21 03/22/21 03/22/21 Range/Units 14:31 14:31 14:39 WBC 5.8 (3.8-10.6) k/uL RBC 4.63 (3.80-5.40) m/uL Hgb 14.4 (11.4-16.0) gm/dL Hct 42.6 (34.0-46.0) % MCV 92.2 (80.0-100.0) fL MCH 31.1 (25.0-35.0) pg MCHC 33.7 (31.0-37.0) g/dL RDW 12.1 (11.5-15.5) % Plt Count 262 (150-450) k/uL MPV 7.3 Neutrophils % 58 % Lymphocytes % 31 % Monocytes % 5 % Eosinophils % 3 % Basophils % 1 % Neutrophils # 3.4 (1.3-7.7) k/uL Lymphocytes # 1.8 (1.0-4.8) k/uL Monocytes # 0.3 (0-1.0) k/uL Eosinophils # 0.2 (0-0.7) k/uL Basophils # 0.0 (0-0.2) k/uL Sodium (137-145) mmol/L Potassium (3.5-5.1) mmol/L Chloride (98-107) mmol/L Carbon Dioxide (22-30) mmol/L Anion Gap mmol/L BUN (7-17) mg/dL Creatinine (0.52-1.04) mg/dL Est GFR (CKD-EPI)AfAm (>60 ml/min/1.73 sqM) Est GFR (CKD-EPI)NonAf (>60 ml/min/1.73 sqM) Glucose (74-99) mg/dL Calcium (8.4-10.2) mg/dL Coronavirus (PCR) Not Detected (Not Detectd) Influenza Type A RNA Not Detected (Not Detectd) Influenza Type B (PCR) Not Detected (Not Detectd) 03/22/21 Range/Units 14:39 WBC (3.8-10.6) k/uL RBC (3.80-5.40) m/uL Hgb (11.4-16.0) gm/dL Hct (34.0-46.0) % MCV (80.0-100.0) fL MCH (25.0-35.0) pg MCHC (31.0-37.0) g/dL RDW (11.5-15.5) % Plt Count (150-450) k/uL MPV Neutrophils % % Lymphocytes % % Monocytes % % Eosinophils % % Basophils % % Neutrophils # (1.3-7.7) k/uL Lymphocytes # (1.0-4.8) k/uL Monocytes # (0-1.0) k/uL Eosinophils # (0-0.7) k/uL Basophils # (0-0.2) k/uL Sodium 141 (137-145) mmol/L Potassium 4.5 (3.5-5.1) mmol/L Chloride 107 (98-107) mmol/L Carbon Dioxide 26 (22-30) mmol/L Anion Gap 8 mmol/L BUN 17 (7-17) mg/dL Creatinine 0.58 (0.52-1.04) mg/dL Est GFR (CKD-EPI)AfAm >90 (>60 ml/min/1.73 sqM) Est GFR (CKD-EPI)NonAf >90 (>60 ml/min/1.73 sqM) Glucose 90 (74-99) mg/dL Calcium 9.9 (8.4-10.2) mg/dL Coronavirus (PCR) (Not Detectd) Influenza Type A RNA (Not Detectd) Influenza Type B (PCR) (Not Detectd) - Radiology Data Radiology results: report reviewed, image reviewed Chest x-ray: There is some minimal pleural reaction or infiltrate lateral left lung base that is new compared to old exam. Disposition Clinical Impression: Bronchitis Disposition: HOME SELF-CARE Condition: Stable Instructions (If sedation given, give patient instructions): Upper Respiratory Infection (ED) Additional Instructions: Please return to the Emergency Department if symptoms worsen or any other concerns. take antibiotics as prescribed until complete follow up with primary care in the next 1-2 days. Is patient prescribed a controlled substance at d/c from ED?: No Referrals: Mike Ramirez MD [Primary Care Provider] - 1-2 days Time of Disposition: 15:44
[2021-03-22 16:04] VITALS: BP 128/89; PULSE 69; RESP 18; TEMP 97.2
== END 2021-03-22 16:02 | disposition home or self-care (01) ==
LOC: EC 13:19
DX: J40 Bronchitis, not specified as acute or chronic (principal); I10 Essential (primary) hypertension; Z88.1 Allergy status to other antibiotic agents; Z88.2 Allergy status to sulfonamides; Z20.822 Contact with and (suspected) exposure to COVID-19
CPT/HCPCS: 36415; 71046; 80048; 85025; 87502; 87635; 99284

== ENCOUNTER → 2021-05-20 | Outpatient (CLI) | payer BC ==
--- NOTE | 2021-05-20 12:09 | MM ---
Reason for exam: screening (asymptomatic). Last mammogram was performed 1 year and 1 month ago. History: Patient is postmenopausal and has history of other cancer at age 51. Took hormonal contraceptives for 3 months. Physical Findings: A clinical breast exam by your physician is recommended on an annual basis and results should be correlated with mammographic findings. MG 3D Screening Mammo W/Cad Bilateral CC and MLO view(s) were taken. Prior study comparison: April 08, 2020, bilateral MG 3d screening mammo w/cad. December 07, 2018, bilateral MG 3d screening mammo w/cad. There are scattered fibroglandular densities. There are benign appearing vascular calcifications in the right breast. There is no discrete abnormality. Benign bilateral axillary lymph nodes redemonstrated. ASSESSMENT: Benign, BI-RAD 2 RECOMMENDATION: Routine screening mammogram of both breasts in 1 year. Manage on a clinical basis with regard to left breast on and off diffuse pain.
== END | disposition home or self-care (01) ==
LOC: RADMAMWWP 06:53
PROVIDERS: ATTEND Family Medicine
DX: Z12.31 Encounter for screening mammogram for malignant neoplasm of breast (principal); Z78.0 Asymptomatic menopausal state; Z85.9 Personal history of malignant neoplasm, unspecified; Z79.3 Long term (current) use of hormonal contraceptives
CPT/HCPCS: 77063; 77067

== ENCOUNTER 2022-01-21 10:06 | Emergency (ER) | payer BC, OTHER ==
[2022-01-21 10:23] VITALS: BP 126/81; PULSE 87; RESP 16; TEMP 98.5
[2022-01-21] MEDS ORDERED: SODIUM CHLORIDE 0.9% 2,000 ML IV STA (10:35)
--- NOTE | 2022-01-21 11:23 | XR ---
KUB HISTORY: Abdominal pain and constipation Frontal KUB and 2 images, no comparisons Lung bases are clear. There are overlying artifacts. There is no evident bowel obstruction or pneumop eritoneum. Air-fluid levels noted without bowel distention. Probable phleboliths present within the p laura. Degenerative disc changes and spinal curvature noted in the lumbar spine. IMPRESSION: Correlate for possible enteritis, ileus, follow-up as indicated.
[2022-01-21 11:35] LABS: Basophils % (A) 0 %; Eosinophils # (A) 0.1 k/uL (0-0.7); Eosinophils % (A) 1 %; HCT 38.8 % (34.0-46.0); HGB 13.1 gm/dL (11.4-16.0); Lymphocytes # (A) 1.5 k/uL (1.0-4.8); Lymphocytes % (A) 17 %; MCH 31.1 pg (25.0-35.0); MCHC 33.7 g/dL (31.0-37.0); MCV 92.3 fL (80.0-100.0); Monocytes # (A) 0.3 k/uL (0-1.0); Monocytes % (A) 3 %; Neutrophils # (A) 7.2 k/uL (1.3-7.7); Neutrophils % (A) 77 %; Platelet Count 283 k/uL (150-450); RBC 4.21 m/uL (3.80-5.40); RDW 12.8 % (11.5-15.5); WBC 9.3 k/uL (3.8-10.6)
[2022-01-21 11:44] LABS: ALT 23 U/L (4-34); AST 25 U/L (14-36); African American GFR (CKD) >90 (>60 ml/min/1.73 sqM); Albumin 4.3 g/dL (3.5-5.0); Alkaline Phosphatase 61 U/L (38-126); Anion Gap 8 mmol/L; Blood Urea Nitrogen 10 mg/dL (7-17); Carbon Dioxide 24 mmol/L (22-30); Chloride 106 mmol/L (98-107); Glucose 106 mg/dL (74-99); Lipase 59 U/L (23-300); Non-African American GFR(CKD) >90 (>60 ml/min/1.73 sqM); Potassium 4.1 mmol/L (3.5-5.1); Sodium 138 mmol/L (137-145); Total Bilirubin 0.5 mg/dL (0.2-1.3); Total Protein 6.9 g/dL (6.3-8.2)
[2022-01-21 11:48] LABS: Appearance,Urine Clear (Clear); Bilirubin,Urine Negative (Negative); Blood,Urine Moderate (Negative); Color,Urine Yellow; Glucose,Urine (UA) Negative (Negative); Ketones,Urine Negative (Negative); Leukocyte Esterase,Urine Small (Negative); Mucus,Urine Few /hpf; Nitrite,Urine Negative (Negative); Protein,Urine Negative (Negative); RBC,Urine 1 /hpf (0-5); Specific Gravity,Urine 1.017 (1.001-1.035); Squamous Epithelial Cell,Urine 2 /hpf (0-4); Urobilinogen,Urine <2.0 mg/dL (<2.0); WBC,Urine 3 /hpf (0-5)
--- NOTE | 2022-01-21 12:33 | CT ---
EXAMINATION TYPE: CT abdomen pelvis w con DATE OF EXAM: 01/21/2022 COMPARISON: None available HISTORY: abdominal pain and cramping CT DLP: 875.9 mGycm Automated exposure control for dose reduction was used. TECHNIQUE: Helical acquisition of images was performed from the lung bases through the pelvis. CONTRAST: Performed without Oral Contrast and with IV Contrast, patient injected with 100 mL of Isovue 300. FINDINGS: LUNG BASES: Bilateral basal linear pulmonary atelectasis. LIVER/GB: No significant abnormality is appreciated. PANCREAS: No significant abnormality is seen. SPLEEN: No significant abnormality is seen. ADRENALS: No significant abnormality is seen. KIDNEYS: Complex cyst is seen at the posterior aspect of the right kidney measuring 2.3 cm which coul d represent a neoplastic lesion rather than a renal abscess. Unremarkable kidneys otherwise. FREE AIR: No free air is visualized. RETROPERITONEAL ADENOPATHY: Subcentimeter retroperitoneal lymph nodes, nonspecific. REPRODUCTIVE ORGANS: Previous hysterectomy. No gross adnexal mass. URINARY BLADDER: No significant abnormality is seen. PELVIC ADENOPATHY: No pathologically enlarged pelvic lymph nodes. OSSEOUS STRUCTURES: Tiny sclerotic foci within the pelvic bones, possibly representing bone islands. No aggressive bone lesion. Marked degenerative changes at L5-S1 level. BOWEL: Small sliding hiatal hernia, otherwise unremarkable undistended stomach, duodenum and small b owel. Acute diverticulitis involving the proximal to mid portion of the sigmoid colon. No definite ab scess formation or signs of perforation. Other scattered uncomplicated colonic diverticulosis. Normal appendix. Suspected adhesions between the inflamed colon, the urinary bladder, the vagina vault and the left pelvic sidewall. OTHER: Mild arterial atherosclerotic calcification. IMPRESSION: 1. Acute diverticulitis involving the proximal to midportion of the sigmoid colon with surrounding in flammatory changes and possible adhesions as described above. No definite abscess formation or signs of perforation. 2. Complex cystic lesion at the posterior aspect of the lower pole of right kidney as described above , suspicious for a neoplastic lesion rather than a renal abscess. Recommend urology consultation. Oth er findings as described above.
[2022-01-21] MEDS ORDERED: AMOXIC-POT CLAV 875-125MG 1 EACH TAB PO STA (12:42)
--- NOTE | 2022-01-21 12:43 | ED ---
Abdominal Pain HPI - General Chief Complaint: Abdominal Pain Stated Complaint: Abd pain Time Seen by Provider: 01/21/22 10:25 Source: patient Mode of arrival: ambulatory Limitations: no limitations - History of Present Illness Initial Comments: Patient is a 61-year-old female who presents to the emergency department with a chief complaint of abdominal pain and constipation. Patient states her abdominal pain started 4 days ago initially lower and now around her bellybutton. Patient states she is having bowel movements daily but they're small. She has some nausea with no vomiting. Denies fever and chills. Denies burning with urination. Admits to blood in the urine however states this is a chronic issue for her. Denies current and past tobacco use. Patient went to urgent care 2 days ago who told her to take MiraLAX. Patient states she has taken MiraLAX twice with no relief. History of hysterectomy. - Related Data Home Medications Medication Instructions Recorded Confirmed Ibuprofen [Motrin Ib] 400 mg PO Q8H PRN 01/21/22 01/21/22 Previous Rx's Medication Instructions Recorded Amoxicillin/Potassium Clav 1 tab PO TID 5 Days #15 tab 01/21/22 [Augmentin 875-125 Tablet] Fluconazole [Diflucan] 150 mg PO ONCE #2 tab 01/21/22 Allergies Allergy/AdvReac Type Severity Reaction Status Date / Time codeine Allergy Rash/Hives Verified 01/21/22 11:22 lactose Allergy Unknown Verified 01/21/22 11:22 levofloxacin [From Levaquin] Allergy anxiety Verified 01/21/22 11:22 sulfamethoxazole Allergy Rash/Hives Verified 01/21/22 11:22 [From Bactrim] trimethoprim [From Bactrim] Allergy Rash/Hives Verified 01/21/22 11:22 Review of Systems ROS Statement: Those systems with pertinent positive or pertinent negative responses have been documented in the HPI. ROS Other: All systems not noted in ROS Statement are negative. Past Medical History Past Medical History: Hypertension Additional Past Medical History / Comment(s): IBS History of Any Multi-Drug Resistant Organisms: None Reported Past Surgical History: Hysterectomy Past Anesthesia/Blood Transfusion Reactions: No Reported Reaction Past Psychological History: No Psychological Hx Reported Smoking Status: Never smoker Past Alcohol Use History: None Reported Past Drug Use History: None Reported General Exam Limitations: no limitations General appearance: alert, in no apparent distress Head exam: Present: atraumatic, normocephalic, normal inspection Neck exam: Present: normal inspection. Absent: tenderness, meningismus, lymphadenopathy Respiratory exam: Present: normal lung sounds bilaterally. Absent: respiratory distress, wheezes, rales, rhonchi, stridor Cardiovascular Exam: Present: regular rate, normal rhythm, normal heart sounds. Absent: systolic murmur, diastolic murmur, rubs, gallop, clicks GI/Abdominal exam: Present: soft, tenderness (Periumbilical), normal bowel sounds. Absent: distended, guarding, rebound, rigid Back exam: Present: normal inspection. Absent: tenderness, CVA tenderness (R), CVA tenderness (L) Neurological exam: Present: alert, oriented X3, CN II-XII intact Psychiatric exam: Present: normal affect, normal mood Skin exam: Present: warm, dry, intact, normal color. Absent: rash Course Vital Signs 01/21/22 10:20 Temperature 98.5 F Pulse Rate 87 Respiratory 16 Rate Blood Pressure 126/81 O2 Sat by Pulse 96 Oximetry Medical Decision Making - Medical Decision Making This is a 61-year-old female who presents with abdominal pain and constipation. Thorough history and examination were performed. Patient is afebrile. Denies fever and chills. The abdomen is soft. There is some periumbilical tenderness. Patient feels constipated but is having daily bowel movements. Will obtain laboratory studies and came the x-ray for possible constipation. Patient declines pain and nausea medications at this time. She has normal white count at 9.3. Urinalysis shows moderate blood. Other laboratory studies are relatively unremarkable. KUB x-ray shows no evident bowel obstruction however there is some air-fluid levels noted without bowel distention concerning for possible enteritis. Results discussed with patient. Patient and I discussed further investigation with abdominal CT. CT of the abdomen and pelvis with contrast was obtained which showed acute diverticulitis involving the proximal to midportion of sigmoid colon with surrounding inflammatory changes and possible adhesions, no definite abscess formation or signs of perforation. There is also a complex cystic lesion of the posterior aspect of the lower pole of the right kidney, suspicious for neoplastic lesion rather than renal abscess. Results discussed with patient. Patient states her pain is tolerable and is okay managing diverticulitis at home. First dose of Augmentin was given in the emergency department. She will be discharged with Augmentin. She will be referred to general surgery regarding the possible adhesions found. She will also be referred to urology regarding the cyst found on her right kidney. She is encouraged to schedule these appointments earliest availability.Patient and I discussed her CT detail including the possible neoplastic lesion found on her right kidney. I did provide her with a copy to take home. Return parameters discussed. Patient verbalizes understanding and is agreeable to this plan. Dr. Apodaca is my attending. - Lab Data Result diagrams: 01/21/22 10:41 01/21/22 10:41 Lab Results 01/21/22 01/21/22 01/21/22 Range/Units 10:41 10:41 10:41 WBC 9.3 (3.8-10.6) k/uL RBC 4.21 (3.80-5.40) m/uL Hgb 13.1 (11.4-16.0) gm/dL Hct 38.8 (34.0-46.0) % MCV 92.3 (80.0-100.0) fL MCH 31.1 (25.0-35.0) pg MCHC 33.7 (31.0-37.0) g/dL RDW 12.8 (11.5-15.5) % Plt Count 283 (150-450) k/uL MPV 7.0 Neutrophils % 77 % Lymphocytes % 17 % Monocytes % 3 % Eosinophils % 1 % Basophils % 0 % Neutrophils # 7.2 (1.3-7.7) k/uL Lymphocytes # 1.5 (1.0-4.8) k/uL Monocytes # 0.3 (0-1.0) k/uL Eosinophils # 0.1 (0-0.7) k/uL Basophils # 0.0 (0-0.2) k/uL Sodium 138 (137-145) mmol/L Potassium 4.1 (3.5-5.1) mmol/L Chloride 106 (98-107) mmol/L Carbon Dioxide 24 (22-30) mmol/L Anion Gap 8 mmol/L BUN 10 (7-17) mg/dL Creatinine 0.72 (0.52-1.04) mg/dL Est GFR (CKD-EPI)AfAm >90 (>60 ml/min/1.73 sqM) Est GFR (CKD-EPI)NonAf >90 (>60 ml/min/1.73 sqM) Glucose 106 H (74-99) mg/dL Calcium 9.0 (8.4-10.2) mg/dL Total Bilirubin 0.5 (0.2-1.3) mg/dL AST 25 (14-36) U/L ALT 23 (4-34) U/L Alkaline Phosphatase 61 (38-126) U/L Total Protein 6.9 (6.3-8.2) g/dL Albumin 4.3 (3.5-5.0) g/dL Lipase 59 (23-300) U/L Urine Color Yellow Urine Appearance Clear (Clear) Urine pH 5.0 (5.0-8.0) Ur Specific [place] 1.017 (1.001-1.035) Urine Protein Negative (Negative) Urine Glucose (UA) Negative (Negative) Urine Ketones Negative (Negative) Urine Blood Moderate H (Negative) Urine Nitrite Negative (Negative) Urine Bilirubin Negative (Negative) Urine Urobilinogen <2.0 (<2.0) mg/dL Ur Leukocyte Esterase Small H (Negative) Urine RBC 1 (0-5) /hpf Urine WBC 3 (0-5) /hpf Ur Squamous Epith Cells 2 (0-4) /hpf Urine Mucus Few H (None) /hpf Disposition Clinical Impression: Diverticulitis large intestine, Blood in urine, Cyst of right kidney Disposition: HOME SELF-CARE Condition: Fair Additional Instructions: Please take Augmentin as prescribed. Take Tylenol or Motrin as needed for pain. Follow-up with general surgeon regarding possible adhesions in your abdomen. Schedule an appointment with urology specialist at earliest available andre ointment regarding cyst on your right kidney. Return to the emergency department if you experience new, concerning, or worsening symptoms. Prescriptions: Amoxicillin/Potassium Clav [Augmentin 875-125 Tablet] 1 tab PO TID 5 Days #15 tab Fluconazole [Diflucan] 150 mg PO ONCE #2 tab Is patient prescribed a controlled substance at d/c from ED?: No Referrals: Mike Ramirez MD [Primary Care Provider] - 1-2 days Norm Valdez MD [STAFF PHYSICIAN] - 1-2 days Kimber Tolentino MD [STAFF PHYSICIAN] - 1-2 days Decision Time: 12:55
== END 2022-01-21 13:07 | disposition home or self-care (01) ==
LOC: EC 10:06
DX: K57.32 Diverticulitis of large intestine without perforation or abscess without bleeding (principal); N28.1 Cyst of kidney, acquired; I10 Essential (primary) hypertension
CPT/HCPCS: 36415; 80053; 83690; 85025; 81001; 74018; 74177; 99284; 96360; 96361; Q9967

== ENCOUNTER → 2022-03-10 | Outpatient (CLI) | payer OTHER ==
--- NOTE | 2022-03-10 21:03 | MR ---
MR kidney with and without contrast HISTORY: D 41.01, abnormal CT Multiplanar multisequence and postcontrast images obtained through the kidneys following 7 cc Gadavis t IV Correlation to CT scan 01/21/2022 Lower pole mass of the right kidney shows T1 intermediate and hypointense appearance, T2 mixed hyperi ntensity, there are internal septations, multilocular appearance. Septations are thickened and show e nhancement following contrast administration. The lesion measures approximately 2.3 x 2.8 cm. There i s a cystic focus at the posterior aspect of the left kidney measuring only 5 mm in size, axial image #23 series 701. There is no retroperitoneal adenopathy. Aorta shows normal caliber. Adrenal glands are unremarkable. Liver shows no mass. Spleen is not enlarged. Pancreas is normal. There is no evident bowel obstructio n. Lung bases show no effusion. 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
== END | disposition home or self-care (01) ==
LOC: RADMRIMAIN 10:57
PROVIDERS: ATTEND Urology
DX: D41.01 Neoplasm of uncertain behavior of right kidney (principal)
CPT/HCPCS: 74183; A9585

== ENCOUNTER → 2022-05-25 | Outpatient (CLI) | payer OTHER ==
[2022-05-25 15:13] LABS: African American GFR (CKD) 108.4 (60.0-200.0); Anion Gap 9.5 mmol/L (10.00-18.00); BUN/Creat Ratio 21.86 Ratio (12.00-20.00); Blood Urea Nitrogen 15.3 mg/dL (9.0-27.0); Calcium 9.3 mg/dL (8.7-10.3); Carbon Dioxide 26.5 mmol/L (20.0-27.5); Non-African American GFR(CKD) 93.5 (60.0-200.0); Potassium 4.5 mmol/L (3.5-5.5)
[2022-05-25 15:18] LABS: Basophils # (A) 0.04 X 10*3/uL (0.00-0.10); Basophils % (A) 0.6 %; Eosinophils # (A) 0.14 X 10*3/uL (0.04-0.35); Eosinophils % (A) 2.1 %; HCT 40.3 % (37.2-46.3); HGB 13.4 g/dL (12.0-15.0); Immature Grans, Automated 0.3 %; Lymphocytes # (A) 2.31 X 10*3/uL (0.90-5.00); Lymphocytes % (A) 34.3 %; MCH 31.2 pg (27.0-32.0); MCHC 33.3 g/dL (32.0-37.0); MCV 93.9 fL (80.0-97.0); Mean Platelet Volume 9.7 fL (9.5-12.2); Monocytes # (A) 0.31 X 10*3/uL (0.20-1.00); Monocytes % (A) 4.6 %; NRBC Per 100 WBC 0 /100 WBCS (0.0-0.0); Neutrophils # (A) 3.91 X 10*3/uL (1.80-7.70); Neutrophils % (A) 58.1 %; Platelet Count 266 X 10*3/uL (140-440); RBC 4.29 X 10*6/uL (4.10-5.20); RDW 12.7 % (11.5-14.5); WBC 6.73 X 10*3/uL (4.50-10.00)
[2022-05-25 18:23] LABS: Appearance,Urine Clear (Clear); Bilirubin,Urine Negative (Negative); Blood,Urine Negative (Negative); Color,Urine Yellow (Yellow); Ketones,Urine Negative (Negative); Nitrite,Urine Negative (Negative); Specific Gravity,Urine 1.007 (1.001-1.030); Urobilinogen,Urine 0.2 (0.2,1.0)
[2022-05-25 18:32] LABS: Bacteria,Urine None Seen /HPF (None Seen)
== END | disposition home or self-care (01) ==
LOC: LABPAT 10:37
PROVIDERS: ATTEND Urology
DX: Z01.812 Encounter for preprocedural laboratory examination (principal); D41.01 Neoplasm of uncertain behavior of right kidney; R31.29 Other microscopic hematuria
CPT/HCPCS: 80048; 81001; 85025; 87086

== ENCOUNTER 2022-06-26 15:07 | Emergency (ER) | payer OTHER ==
[2022-06-26 15:31] VITALS: TEMP 98.1
--- NOTE | 2022-06-26 17:09 | XR ---
EXAMINATION TYPE: XR KUB DATE OF EXAM: 06/26/2022 COMPARISON: 01/21/2022 HISTORY: Constipation TECHNIQUE: 2 views FINDINGS: Bowel gas pattern is normal. No sign of intestinal obstruction or pneumoperitoneum. Fecal p attern is normal. Lung bases are clear. There are no pathologic calcifications over the kidneys. IMPRESSION: Nonacute abdomen. No change.
[2022-06-26 18:02] LABS: Appearance,Urine Clear (Clear); Bilirubin,Urine Negative (Negative); Blood,Urine Trace (Negative); Color,Urine Light Yellow; Glucose,Urine (UA) Negative (Negative); Ketones,Urine Negative (Negative); Leukocyte Esterase,Urine Negative (Negative); Mucus,Urine Rare /hpf; Nitrite,Urine Negative (Negative); Protein,Urine Negative (Negative); RBC,Urine 1 /hpf (0-5); Specific Gravity,Urine 1.007 (1.001-1.035); Squamous Epithelial Cell,Urine <1 /hpf (0-4); Urobilinogen,Urine <2.0 mg/dL (<2.0); WBC,Urine 1 /hpf (0-5)
[2022-06-26] MEDS ORDERED: ONDANSETRON 4 MG/2 ML VIAL IVP STA (19:18)
[2022-06-26] MEDS ORDERED: SODIUM CHLORIDE 0.9% 1,000 ML IV STA (19:18)
[2022-06-26 19:22] VITALS: RESP 17
[2022-06-26 20:09] LABS: Basophils # (A) 0.1 k/uL (0-0.2); Basophils % (A) 1 %; Eosinophils # (A) 0.5 k/uL (0-0.7); Eosinophils % (A) 6 %; HCT 37.1 % (34.0-46.0); HGB 13.1 gm/dL (11.4-16.0); Lymphocytes # (A) 2.5 k/uL (1.0-4.8); Lymphocytes % (A) 29 %; MCH 31.7 pg (25.0-35.0); MCHC 35.3 g/dL (31.0-37.0); MCV 89.8 fL (80.0-100.0); Mean Platelet Volume 7.5; Monocytes # (A) 0.3 k/uL (0-1.0); Monocytes % (A) 4 %; Neutrophils % (A) 59 %; Platelet Count 359 k/uL (150-450); RBC 4.13 m/uL (3.80-5.40); RDW 12.1 % (11.5-15.5); WBC 8.4 k/uL (3.8-10.6)
[2022-06-26 20:32] LABS: ALT 24 U/L (4-34); AST 22 U/L (14-36); African American GFR (CKD) >90 (>60 ml/min/1.73 sqM); Albumin 4.7 g/dL (3.5-5.0); Alkaline Phosphatase 82 U/L (38-126); Anion Gap 14 mmol/L; Blood Urea Nitrogen 10 mg/dL (7-17); Calcium 9.7 mg/dL (8.4-10.2); Carbon Dioxide 25 mmol/L (22-30); Chloride 100 mmol/L (98-107); Glucose 95 mg/dL (74-99); Lipase 70 U/L (23-300); Non-African American GFR(CKD) >90 (>60 ml/min/1.73 sqM); Potassium 4.2 mmol/L (3.5-5.1); Sodium 139 mmol/L (137-145); Total Bilirubin 0.5 mg/dL (0.2-1.3); Total Protein 7.3 g/dL (6.3-8.2)
[2022-06-26] MEDS ORDERED: DOCUSATE 100 MG CAP PO STA (21:11)
[2022-06-26 21:42] VITALS: BP 129/79; PULSE 73
--- NOTE | 2022-06-26 21:53 | CT ---
EXAMINATION TYPE: CT abdomen pelvis w con DATE OF EXAM: 06/26/2022 COMPARISON: 01/21/2022 HISTORY: Left side abdominal pain. CT DLP: 807.1 mGycm Automated exposure control for dose reduction was used. CONTRAST: Performed with IV Contrast, patient injected with 100cc mL of Isovue 300. Images obtained from the diaphragm to the floor the pelvis with the IV contrast. Lung bases are clear of consolidation. There is some mild atelectasis at the posterior lung bases. No pleural effusion. Heart size is normal. No pericardial effusion. There is small hiatal hernia. Liver and spleen are intact. No pancreatic mass. Gallbladder appears normal. Stomach has normal size. There is no adrenal mass. There is some right-sided perinephric fluid consistent with recent surgery and perinephric hematoma. There is some deformity at the lower pole of the right kidney. Left kidney appears normal. No retroperitoneal adenopathy. Ureters are not dilated. Delayed images show normal re nal excretion. There is fat stranding around the mid sigmoid colon with wall thickening. There are some sigmoid dive rticula. Bladder distends smoothly. No inguinal hernia. No free fluid in the pelvis. There is no mesenteric small bowel edema. No sign of bowel obstruction. Appendix appears normal. No f ree air. The lumbar vertebrae have normal alignment. There is vacuum disc at L5-S1. No lumbar compression frac ture. The bony pelvis is intact. The hip joints are intact. IMPRESSION: There is evidence of sigmoid diverticulitis in same location as last exam. There is apparent right re nal surgery with excision of the mass at the lower pole of the right kidney compared to the old exam. Small right-sided perinephric hematoma. Normal appendix.
--- NOTE | 2022-06-26 22:13 | ED ---
Abdominal Pain HPI - General Chief Complaint: Abdominal Pain Stated Complaint: constipation Time Seen by Provider: 06/26/22 19:04 Source: patient Mode of arrival: ambulatory Limitations: no limitations - History of Present Illness Initial Comments: Patient is a [id number] medical history of IBSs, constipation, GERD, diverticulitis, and renal clear cell carcinoma s/p partial nephrectomy 3 weeks ago who presents to the emergency department with a chief complaint of constipation. Patient states since her kidney surgery 3 weeks ago she has not had a normal bowel movement. States this is a chronic issue for her however for the past week she has had consistent small bowel movements. Patient feels bloated. Reports intermittent left lower abdominal cramping, especially before bowel movements. She does not have pain currently. Also reports mild nausea. No vomiting. Patient states she has an appointment with Dr. Tolentino in a couple weeks for removal of some of her colon due to diverticulitis. Denies fever and chills. MD Complaint: abdominal pain - Related Data Home Medications Medication Instructions Recorded Confirmed Ibuprofen [Motrin Ib] 400 mg PO Q8H PRN 01/21/22 06/04/22 Dulcolax(Dose Unknown) 1 tab PO DAILY PRN 06/02/22 06/04/22 Lansoprazole [Prevacid] 30 mg PO DAILY PRN 06/02/22 06/04/22 SUMAtriptan succinate [Imitrex] 25 mg PO DIRECTED PRN 06/02/22 06/04/22 diphenhydrAMINE HCL [Benadryl 50 mg PO DAILY PRN 06/02/22 06/04/22 Allergy] Previous Rx's Medication Instructions Recorded HYDROcodone/APAP 5-325MG [[place] 1 tab PO Q6HR PRN 3 Days #12 tab 06/06/22 5-325] Ibuprofen [Motrin] 600 mg PO Q8HR PRN #20 tab 06/06/22 methocarbamoL [Robaxin-750] 750 mg PO QID PRN #10 tab 06/06/22 Amoxic-Pot Clav 875-125Mg 1 tab PO Q12HR 7 Days #14 tab 06/26/22 [Augmentin 875-125] Ondansetron Odt [Zofran Odt] 4 mg PO Q8HR PRN #10 tab 06/26/22 Allergies Allergy/AdvReac Type Severity Reaction Status Date / Time acetaminophen [From Tylenol] Allergy facial Verified 06/26/22 15:30 numbness codeine Allergy Rash/Hives Verified 06/26/22 15:30 lactose Allergy Unknown Verified 06/26/22 15:30 levofloxacin [From Levaquin] Allergy anxiety Verified 06/26/22 15:30 Sulfa (Sulfonamide Allergy Rash/Hives Verified 06/26/22 15:30 Antibiotics) sulfamethoxazole Allergy Rash/Hives Verified 06/26/22 15:30 [From Bactrim] trimethoprim [From Bactrim] Allergy Rash/Hives Verified 06/26/22 15:30 Review of Systems ROS Statement: Those systems with pertinent positive or pertinent negative responses have been documented in the HPI. ROS Other: All systems not noted in ROS Statement are negative. 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 kidney, skin cancer History of Any Multi-Drug Resistant Organisms: None Reported Past Surgical History: Hysterectomy Additional Past Surgical History / Comment(s): tumor removed from behind left ear, Past Anesthesia/Blood Transfusion Reactions: No Reported Reaction Past Psychological History: No Psychological Hx Reported Smoking Status: Former smoker Past Alcohol Use History: None Reported Past Drug Use History: None Reported - Past Family History Mother Family Medical History: No Reported History General Exam Limitations: no limitations Respiratory exam: Present: normal lung sounds bilaterally. Absent: respiratory distress, wheezes, rales, rhonchi, stridor Cardiovascular Exam: Present: regular rate, normal rhythm, normal heart sounds. Absent: systolic murmur, diastolic murmur, rubs, gallop, clicks GI/Abdominal exam: Present: soft, tenderness (LLQ), normal bowel sounds. Absent: distended, guarding, rebound, rigid Neurological exam: Present: alert, oriented X3, CN II-XII intact Psychiatric exam: Present: normal affect, normal mood Skin exam: Present: warm, dry, intact, normal color. Absent: rash Course Vital Signs 06/26/22 06/26/22 06/26/22 15:29 19:14 21:42 Temperature 98.1 F Pulse Rate 86 78 73 Respiratory 16 17 17 Rate Blood Pressure 132/81 132/86 129/79 O2 Sat by Pulse 98 98 95 Oximetry Medical Decision Making - Medical Decision Making This is a 61-year-old female presented constipation. Afebrile. The abdomen is soft. There is mild tenderness in left lower quadrant. No guarding. Laboratory studies obtained. There is no leukocytosis. CT of the abdomen and pelvis with contrast shows sigmoid diverticulitis. There is no fluid collection or perforation. Augmentin given. Results discussed with patient. Patient is well-appearing, mild abdominal tenderness, stable vitals, no leukocytosis, with uncomplicated diverticulitis. Patient just infection at home. She will be discharged with Augmentin and Zofran. Chem parameters discussed. Patient to follow-up with Dr. Tolentino. Dr. Apodaca is my attending. - Lab Data Result diagrams: 06/26/22 19:28 06/26/22 19:28 Lab Results 06/26/22 06/26/22 06/26/22 Range/Units 17:38 19:28 19:28 WBC 8.4 (3.8-10.6) k/uL RBC 4.13 (3.80-5.40) m/uL Hgb 13.1 (11.4-16.0) gm/dL Hct 37.1 (34.0-46.0) % MCV 89.8 (80.0-100.0) fL MCH 31.7 (25.0-35.0) pg MCHC 35.3 (31.0-37.0) g/dL RDW 12.1 (11.5-15.5) % Plt Count 359 (150-450) k/uL MPV 7.5 Neutrophils % 59 % Lymphocytes % 29 % Monocytes % 4 % Eosinophils % 6 % Basophils % 1 % Neutrophils # 5.0 (1.3-7.7) k/uL Lymphocytes # 2.5 (1.0-4.8) k/uL Monocytes # 0.3 (0-1.0) k/uL Eosinophils # 0.5 (0-0.7) k/uL Basophils # 0.1 (0-0.2) k/uL Sodium 139 (137-145) mmol/L Potassium 4.2 (3.5-5.1) mmol/L Chloride 100 (98-107) mmol/L Carbon Dioxide 25 (22-30) mmol/L Anion Gap 14 mmol/L BUN 10 (7-17) mg/dL Creatinine 0.72 (0.52-1.04) mg/dL Est GFR (CKD-EPI)AfAm >90 (>60 ml/min/1.73 sqM) Est GFR (CKD-EPI)NonAf >90 (>60 ml/min/1.73 sqM) Glucose 95 (74-99) mg/dL Calcium 9.7 (8.4-10.2) mg/dL Total Bilirubin 0.5 (0.2-1.3) mg/dL AST 22 (14-36) U/L ALT 24 (4-34) U/L Alkaline Phosphatase 82 (38-126) U/L Total Protein 7.3 (6.3-8.2) g/dL Albumin 4.7 (3.5-5.0) g/dL Lipase 70 (23-300) U/L Urine Color Light Yellow Urine Appearance Clear (Clear) Urine pH 6.0 (5.0-8.0) Ur Specific [place] 1.007 (1.001-1.035) Urine Protein Negative (Negative) Urine Glucose (UA) Negative (Negative) Urine Ketones Negative (Negative) Urine Blood Trace H (Negative) Urine Nitrite Negative (Negative) Urine Bilirubin Negative (Negative) Urine Urobilinogen <2.0 (<2.0) mg/dL Ur Leukocyte Esterase Negative (Negative) Urine RBC 1 (0-5) /hpf Urine WBC 1 (0-5) /hpf Ur Squamous Epith Cells <1 (0-4) /hpf Urine Mucus Rare H (None) /hpf Disposition Clinical Impression: Constipation, Left sided abdominal pain, Nausea Disposition: HOME SELF-CARE Condition: Good Instructions (If sedation given, give patient instructions): Diverticulitis (ED) Additional Instructions: Take medication as directed. Follow-up with Dr. Tolentino as scheduled. return to emergency department if you experience new, concerning, or worsening symptoms. Prescriptions: Amoxic-Pot Clav 875-125Mg [Augmentin 875-125] 1 tab PO Q12HR 7 Days #14 tab Ondansetron Odt [Zofran Odt] 4 mg PO Q8HR PRN #10 tab PRN Reason: Nausea Is patient prescribed a controlled substance at d/c from ED?: No Referrals: Mike Ramirez MD [Primary Care Provider] - 1-2 days
== END 2022-06-26 22:27 | disposition home or self-care (01) ==
LOC: EC 15:07
DX: K59.00 Constipation, unspecified (principal); I10 Essential (primary) hypertension; K21.9 Gastro-esophageal reflux disease without esophagitis; M19.90 Unspecified osteoarthritis, unspecified site; Z79.899 Other long term (current) drug therapy; Z79.83 Long term (current) use of bisphosphonates; Z87.891 Personal history of nicotine dependence; Z88.2 Allergy status to sulfonamides; Z88.5 Allergy status to narcotic agent; Z88.1 Allergy status to other antibiotic agents; Z88.6 Allergy status to analgesic agent
CPT/HCPCS: 80053; 83690; 85025; 81001; 74018; 74177; 99284; 96374; 96361; J2405; Q9967; 36415

== ENCOUNTER 2022-08-10 08:54 | Day surgery (SDC) | payer OTHER ==
[2022-08-05 11:05] VITALS: BMI 25.7
--- NOTE | 2022-08-10 09:00 | P.GSHP ---
History of Present Illness H&P Date: 08/10/22 CHIEF COMPLAINT: Colon screen HISTORY OF PRESENT ILLNESS: The patient is a 61-year-old female who presents for colon screen. Lower endoscopy was offered for further evaluation and management. PAST MEDICAL HISTORY: Please see list. PAST SURGICAL HISTORY: Please see list. MEDICATIONS: Please see list. ALLERGIES: Please see list. SOCIAL HISTORY: No illicit drug use FAMILY HISTORY: No reports of Crohn disease or ulcerative colitis. REVIEW OF ORGAN SYSTEMS: CONSTITUTIONAL: No reports of fevers or chills. PHYSICAL EXAM: VITAL SIGNS: Stable GENERAL: Well-developed pleasant in no acute distress. HEENT: No scleral icterus. Extraocular movements grossly intact. Moist buccal mucosa. NECK: Supple without lymphadenopathy. CHEST: Unlabored respirations. Equal bilateral excursions. CARDIOVASCULAR: Regular rate and rhythm. Distal 2+ pulses. ABDOMEN: Soft, nontender, nondistended. MUSCULOSKELETAL: No clubbing, cyanosis, or edema. ASSESSMENT: 1. Colon screen. PLAN: 1. 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, skin cancer History of Any Multi-Drug Resistant Organisms: None Reported Past Surgical History: Hysterectomy Additional Past Surgical History / Comment(s): tumor removed from behind left ear, Past Anesthesia/Blood Transfusion Reactions: No Reported Reaction Smoking Status: Former smoker - Past Family History Mother Family Medical History: No Reported History Medications and Allergies Home Medications Medication Instructions Recorded Confirmed Type Ibuprofen [Motrin Ib] 400 mg PO Q8H PRN 01/21/22 08/05/22 History Lansoprazole [Prevacid] 30 mg PO DAILY PRN 06/02/22 08/05/22 History SUMAtriptan succinate [Imitrex] 25 mg PO DIRECTED PRN 06/02/22 08/05/22 History diphenhydrAMINE HCL [Benadryl 50 mg PO DAILY PRN 06/02/22 08/05/22 History Allergy] Allergies Allergy/AdvReac Type Severity Reaction Status Date / Time acetaminophen [From Tylenol] Allergy facial Verified 08/05/22 11:06 numbness codeine Allergy Rash/Hives Verified 08/05/22 11:06 lactose Allergy Unknown Verified 08/05/22 11:06 levofloxacin [From Levaquin] Allergy anxiety Verified 08/05/22 11:06 Sulfa (Sulfonamide Allergy Rash/Hives Verified 08/05/22 11:06 Antibiotics) sulfamethoxazole Allergy Rash/Hives Verified 08/05/22 11:06 [From Bactrim] trimethoprim [From Bactrim] Allergy Rash/Hives Verified 08/05/22 11:06
[2022-08-10 09:45] VITALS: RESP 16; TEMP 97
[2022-08-10] MEDS ORDERED: LIDOCAINE 1% (10MG/ML) FOR IV START INTRADERMA ONE (09:45)
[2022-08-10] MEDS: LACTATED RINGERS 1,000 ML IV SCH ×2 (09:45→10:19)
[2022-08-10 10:04] LABS: Glucose,Whole Blood 97 mg/dL (70-110)
[2022-08-10] MEDS ORDERED: PROPOFOL 10 MG/ML 20 ML VIAL IV ONE (10:23)
--- NOTE | 2022-08-10 10:58 | P.PCN ---
Date of Procedure: 08/10/22 Description of Procedure: PREOPERATIVE DIAGNOSIS: Diverticulosis with diverticulitis POSTOPERATIVE DIAGNOSIS: Sigmoid diverticulosis OPERATION: Colonoscopy to the cecum, ileocecal valve and appendiceal orifice. SURGEON: Kimber Tolentino MD. ANESTHESIA: MAC. INDICATIONS: The patient is a 61-year-old female who presents with diverticulosis. Benefits and risks were described and informed consent was obtained. DESCRIPTION OF PROCEDURE: The patient had undergone Sutab prep. The patient had been brought into the operating room and laid in the left lateral decubitus position. After adequate intravenous sedation, the rectum was examined with 2% lidocaine jelly. No external hemorrhoids were encountered. The rectal tone was within normal limits. No lesions were palpated in the rectal vault. An Olympus colonoscope was advanced until the cecum, ileocecal valve and appendiceal orifice were clearly viewed. The prep was excellent. Scattered diverticulosis of the sigmoid colon was encountered. No colonic polyps were found. No evidence of focal colitis was found. Retroflexion of the scope demonstrated grade 1 internal hemorrhoids without active bleeding or inflammation. The colon was desufflated. The patient had tolerated the procedure well. Withdrawal time was over 6 minutes. FINDINGS: Aronchick preparation quality scale 1 (1-5) Internal hemorrhoids, grade 1 No external prolapsed hemorrhoids. No arteriovenous malformations. No adenomatous polyps. No focal colitis. RECOMMENDATIONS: Lower endoscopy in 10 years, 2031 Plan - Discharge Summary New Discharge Prescriptions: Continue SUMAtriptan succinate [Imitrex] 25 mg PO DIRECTED PRN PRN Reason: migraines Ibuprofen [Motrin Ib] 400 mg PO Q8H PRN PRN Reason: migraines diphenhydrAMINE HCL [Benadryl] 50 mg PO DAILY PRN PRN Reason: migraines Lansoprazole [Prevacid] 30 mg PO DAILY PRN PRN Reason: Heartburn Discharge Medication List Ibuprofen [Motrin Ib] 400 mg PO Q8H PRN 01/21/22 [History] Lansoprazole [Prevacid] 30 mg PO DAILY PRN 06/02/22 [History] SUMAtriptan succinate [Imitrex] 25 mg PO DIRECTED PRN 06/02/22 [History] diphenhydrAMINE HCL [Benadryl] 50 mg PO DAILY PRN 06/02/22 [History] Follow up Appointment(s)/Referral(s): Kimber Tolentino MD [STAFF PHYSICIAN] - As Needed Patient Instructions/Handouts: Diverticulitis (DC), Diverticulitis Diet (DC) Activity/Diet/Wound Care/Special Instructions: Repeat colonoscopy in 10 years, 2031 Discharge Disposition: HOME SELF-CARE
[2022-08-10 11:08] VITALS: BP 117/79; PULSE 69
== END 2022-08-10 11:56 | disposition home or self-care (01) ==
LOC: ORWHC2ENDO 08:54
PROVIDERS: ATTEND Surgery Plastic and Reconstructive Surgery
DX: Z12.11 Encounter for screening for malignant neoplasm of colon (principal); K57.30 Diverticulosis of large intestine without perforation or abscess without bleeding; K64.0 First degree hemorrhoids; Z87.891 Personal history of nicotine dependence; Z79.899 Other long term (current) drug therapy; Z79.1 Long term (current) use of non-steroidal anti-inflammatories (NSAID); Z88.1 Allergy status to other antibiotic agents; Z88.2 Allergy status to sulfonamides; Z88.6 Allergy status to analgesic agent; K21.9 Gastro-esophageal reflux disease without esophagitis; M19.90 Unspecified osteoarthritis, unspecified site; C64.9 Malignant neoplasm of unspecified kidney, except renal pelvis
CPT/HCPCS: 45378; J2704

== ENCOUNTER → 2022-11-18 | Outpatient (CLI) | payer OTHER ==
--- NOTE | 2022-11-19 19:23 | MM ---
Reason for Exam: Screening (asymptomatic). Last mammogram was performed 1 year(s) and 6 month(s) ago. Patient History: Menarche at age 11. First Full-Term at age 19. Right ovary removed at age 42. Hysterectomy at age 42. Postmenopausal. Patient has history of breast feeding. Other cancer, age 51. Hormonal Contraceptives for 3 months. Risk Values: Sarita 5 year model risk: 1.2%. NCI Lifetime model risk: 5.5%. Prior Study Comparison: 12/07/2018 Bilateral Screening Mammogram, [facility]. 04/08/2020 Bilateral Screening Mammogram, [facility]. 05/20/2021 Bilateral Screening Mammogram, [facility]. Tissue Density: There are scattered fibroglandular densities. Findings: Analyzed By CAD. There is no suspicious group of microcalcifications or new suspicious mass in either breast. Overall Assessment: Negative, BI-RAD 1 Management: Screening Mammogram of both breasts in 1 year. 1. Patient should continue monthly self breast exams. 2. A clinical breast exam by your physician is recommended on an annual basis. 3. This exam should not preclude additional follow-up of suspicious palpable abnormalities. Electronically signed and approved by: Venita Tong M.D. Radiologist
== END | disposition home or self-care (01) ==
LOC: RADMAMWWP 15:12
PROVIDERS: ATTEND Family Medicine
DX: Z12.31 Encounter for screening mammogram for malignant neoplasm of breast (principal); Z78.0 Asymptomatic menopausal state
CPT/HCPCS: 77063; 77067

== ENCOUNTER → 2022-11-23 | Outpatient (CLI) | payer OTHER ==
--- NOTE | 2022-11-24 07:59 | XR ---
EXAMINATION TYPE: XR chest 2V DATE OF EXAM: 11/23/2022 COMPARISON: 03/22/2021 TECHNIQUE: PA and lateral views submitted. HISTORY: Follow-up renal cancer FINDINGS: The lungs are clear and there is no pneumothorax, pleural effusion, or focal pneumonia. Heart size normal and no overt failure. Osseous structures demonstrate hypertrophic and degenerative changes of the spine. Mild hyperinflation correlate for COPD. IMPRESSION: 1. No acute process.
--- NOTE | 2022-11-24 11:15 | CT ---
EXAMINATION TYPE: CT abdomen pelvis wo/w con CT DLP: 1478.8 mGycm, Automated exposure control for dose reduction was used. DATE OF EXAM: 11/23/2022 7:08 PM COMPARISON: CT abdomen pelvis most recent from 06/18/2022, MRI 03/10/2022, CT 01/21/2022 CLINICAL INDICATION:Female, 62 years old with history of C64.1 kidney cancer; Rt side kidney CA follo w up. TECHNIQUE: Axial CT of the abdomen and pelvis. Sagittal and coronal reformats were created on a [employer] workstation. Contrast used:100cc mL of Isovue 300 with IV Contrast, Oral contrast used: with Oral Contrast FINDINGS: LOWER CHEST: Unremarkable ABDOMEN LIVER: Unremarkable GALLBLADDER AND BILE DUCTS: Unremarkable. PANCREAS: Unremarkable. SPLEEN: Unremarkable. ADRENAL GLANDS: Unremarkable. KIDNEYS AND URETERS: Post surgical changes right kidney inferior pole. No evidence for enlarging soft tissue or lymphadenopathy. There are similar appearing soft tissue just anterior to the ureter measu ring 10 mm in short axis series 8 image 56 felt to represent a vessel. Given its appearance on prior imaging of a tubular structure. No evidence of obstructive uropathy or renal calculus. Left kidney is without mass. STOMACH AND BOWEL: No evidence of bowel obstruction. Scattered colonic diverticula. The appendix is n ormal. Small hiatal hernia. PERITONEUM/RETROPERITONEUM: No evidence of pneumoperitoneum or free fluid. VASCULATURE: No evidence of aortic aneurysm. MUSCULOSKELETAL: No acute osseous abnormalities. Mild disc degeneration changes are present throughou t the thoracolumbar spine. LYMPH NODES: No gross evidence for lymphadenopathy. SOFT TISSUE/ABDOMINAL WALL: Small umbilical hernia. IMPRESSION: 1. Postsurgical changes to the right kidney without evidence for recurrence or lymphadenopathy. Cont inued attention follow-up surveillance. 2. No evidence for acute abdominal process.
== END | disposition home or self-care (01) ==
LOC: RADCTMAIN 17:43
PROVIDERS: ATTEND Urology
DX: C64.1 Malignant neoplasm of right kidney, except renal pelvis (principal); Z98.890 Other specified postprocedural states
CPT/HCPCS: 82565; 84520; 71046; 74178; 36415; Q9967

== ENCOUNTER → 2023-11-23 | Outpatient (CLI) | payer OTHER ==
--- NOTE | 2023-11-25 22:43 | MM ---
Reason for Exam: Screening (asymptomatic). Last screening mammogram was performed 12 month(s) ago. Patient History: Menarche at age 11. First Full-Term at age 19. Right ovary removed at age 42. Hysterectomy at age 42. Postmenopausal. Patient has history of breast feeding. Other cancer, age 51. Hormonal Contraceptives for 3 months. Risk Values: Sarita 5 year model risk: 1.2%. NCI Lifetime model risk: 5.3%. Prior Study Comparison: 04/08/2020 Bilateral Screening Mammogram, [facility]. 05/20/2021 Bilateral Screening Mammogram, [facility]. 11/18/2022 Bilateral MG 3D screening mammo w/cad, [facility]. Tissue Density: There are scattered areas of fibroglandular density. Findings: Analyzed By CAD. The pattern is symmetrical. Benign vascular calcifications present on the right. No suspicious groups of microcalcifications, spiculated or lobular masses, architectural distortion or other secondary signs of malignancy are mammographically apparent. Overall Assessment: Benign, BI-RAD 2 Management: Screening Mammogram of both breasts in 1 year. A negative mammogram report should not preclude additional follow up of suspicious palpable abnormalities. Patient should continue monthly self breast exam. A clinical breast exam by your physician is recommended on an annual basis and results should be correlated with mammographic findings. Electronically signed and approved by: Ezio Sarmiento D.O. Radiologis
== END | disposition home or self-care (01) ==
LOC: RADMAMWWP 12:08
PROVIDERS: ATTEND Family Medicine
DX: Z12.31 Encounter for screening mammogram for malignant neoplasm of breast (principal); Z78.0 Asymptomatic menopausal state
CPT/HCPCS: 77063; 77067

== ENCOUNTER → 2023-12-20 | Outpatient (CLI) | payer OTHER ==
--- NOTE | 2023-12-20 14:58 | US ---
EXAMINATION TYPE: US kidneys/renal and bladder DATE OF EXAM: 12/20/2023 COMPARISON: CT 11/23/2022, MR 03/10/2022 CLINICAL INDICATION: Female, 63 years old with history of C64.1 RIGHT KIDNEY, EXCEPT RENAL PELVIS; Hx cancer right kidney. Surgery to remove lesion 1.5 years ago. EXAM MEASUREMENTS: Right Kidney: 10.3 x 5.7 x 4.7 cm Left Kidney: 11.9 x 5.3 x 4.3 cm Right Kidney: Hyperechoic, calcified area with shadowing seen lower/lateral pole: 1.7 x 0.9 x 0.7 c m. Left Kidney: Hypoechoic, indistinct area seen medially: 1.2 x 1.1 x 1.2 cm. Bladder: Appears wnl Bilateral Jets seen: Yes IMPRESSION: Calcific density right kidney likely reflects nonobstructing nephrolithiasis. 2. Indistinct hypoechoic area left kidney. Consider CT correlation
--- NOTE | 2023-12-20 15:50 | XR ---
EXAMINATION TYPE: XR chest 2V DATE OF EXAM: 12/20/2023 COMPARISON: 11/23/2022 HISTORY: 63-year-old female C64.1 RIGHT KIDNEY cancer, EXCEPT RENAL PELVIS. Diagnosed one year ago. TECHNIQUE: Frontal and lateral views FINDINGS: Heart normal size. Aorta and pulmonary vasculature within normal limits. No consolidation or pleural effusion. IMPRESSION: No acute cardiopulmonary process.
== END | disposition home or self-care (01) ==
LOC: RADUSWWP 13:28
PROVIDERS: ATTEND Urology
DX: C64.1 Malignant neoplasm of right kidney, except renal pelvis (principal)
CPT/HCPCS: 71046; 76770

== ENCOUNTER → 2024-11-15 | Outpatient (CLI) | payer OTHER ==
--- NOTE | 2024-11-15 11:03 | MM ---
Reason for Exam: Clinical finding. Last screening mammogram was performed 12 month(s) ago. Patient History: Menarche at age 11. First Full-Term at age 19. Right ovary removed at age 42. Hysterectomy at age 42. Postmenopausal. Patient has history of breast feeding. Other cancer, age 51. Hormonal Contraceptives for 3 months. Risk Values: Sarita 5 year model risk: 1.3%. NCI Lifetime model risk: 5.2%. Tissue Density: There are scattered areas of fibroglandular density. Findings: Analyzed By CAD. Benign-appearing bilateral axillary lymph nodes are redemonstrated. Benign-appearing Vascular calcification right breast is redemonstrated. No suspicious new mass or distortion in either breast. Overall Assessment: Benign, BI-RAD 2 Management: Screening Mammogram of both breasts in 1 year. Manage patient's symptoms clinically.. Results were given to the patient verbally at the time of exam. Patient should continue monthly self-breast exams. A clinical breast exam by your physician is recommended on an annual basis. This exam should not preclude additional follow-up of suspicious palpable abnormalities. Note on Sarita scores and lifetime risk: 1. A Sarita score greater than 3% is considered moderate risk. If this is the case, consider specialist referral to assess eligibility for a risk reducing agent. 2. If overall lifetime risk for the development of breast cancer is 20% or higher, the patient may qualify for future screening with alternating mammogram and breast MRI. [facility], , 11/15/2024 11:00 AM. Electronically signed and approved by: Nickolas Londono M.D.
== END | disposition home or self-care (01) ==
LOC: RADMAMWWP 10:30
PROVIDERS: ATTEND Family Medicine
DX: R92.323 Mammographic fibroglandular density, bilateral breasts (principal); N64.4 Mastodynia; Z78.0 Asymptomatic menopausal state; Z92.0 Personal history of contraception
CPT/HCPCS: 77066; G0279; 77062